=== PATIENT | female | born 1950 | race Caucasian/White ===

== ENCOUNTER 2023-05-31 15:51 | Emergency (ER) | payer MEDICARE, OTHER, SELFPAY ==
--- NOTE | ~2023-05-31 | XR_ITS ---
EXAM: XR shoulder RT min 2V DATE: 05/31/2023 16:15 HISTORY: fall . COMPARISON: None available. FINDINGS: Decreased mineralization. No fracture or dislocation. No lytic or blastic lesion. Mild AC joint and glenohumeral joint degenerative change. No erosion or periosteal change. Hilar and mediasti nal rambo calcification. Senescent lung changes. IMPRESSION: No acute osseous finding in the right shoulder. Reviewed, dictated and finalized at location K.
--- NOTE | 2023-05-31 16:04 | ED.EXTPRO ---
HPI - Extremity Problem General Chief complaint: Extremity Problem,Nontraumatic Stated complaint: R Shoulder Pain Time Seen by Provider: 05/31/23 16:31 Source: patient and RN notes reviewed Mode of arrival: ambulatory Limitations: no limitations History of Present Illness HPI Narrative: 72 year old female presents with concern for right shoulder pain after a fall today. She tripped on her 's trailer hitch. She reports jjoint pain, denies decreased strength, sensation, range of motion. Reports she has been having chronic pain lately and has an appointment with her primary care provider in 1 week. She denies bruising, warmth, swelling MD Complaint: extremity pain Related Data Home Medications Medication Instructions Recorded Confirmed cholecalciferol (vitamin D3) 10 10 mcg PO DAILY 01/18/23 04/05/23 mcg (400 unit) capsule Allergies Allergy/AdvReac Type Severity Reaction Status Date / Time sulfamethoxazole AdvReac Severe Unknown Verified 05/31/23 16:19 [From ] trimethoprim [From ] AdvReac Severe Unknown Verified 05/31/23 16:19 Review of Systems Review of Systems: CONSTITUTIONAL: Denies malaise, chills, sweats, or fever. CARDIOVASCULAR: Denies chest pain, palpitations, or edema. RESPIRATORY: Denies cough or dyspnea. SKIN: Denies rash or itching, bruising, redness, swelling. MUSCULOSKELETAL: Reports right shoulder pain NEUROLOGIC: Denies numbness, weakness All systems reviewed & are unremarkable except as noted in HPI and below PMFSH Past Medical History Medical History Cataracts, bilateral Pernicious anemia Vitamin D deficiency Social History Social History Smoking status: Unknown if ever smoked Alcohol intake: current Drinks per week: 1 Substance use: never Substance use type: does not use Lack of Transportation: No Lack of Food: Never True Current Housing: I Have Housing Concerned About Future Housing: No Difficulty Paying Gas/Electric Bills: No Difficulty Paying for Meds: No Currently Unemployed: No Education: Trade/Vocational Certificate Difficulty w/ Childcare or Family Care: No Living arrangements: with family Occupation/Education: occupation Gender identity (if verbalized by the patient): Female Sexual Orientation (if Verbalized by the Patient): Straight or Heterosexual Comments At time of signature, agree with nursing past medical, surgical, social and family history. There is no relevant family history pertinent to the presenting complaint Exam Narrative: GENERAL: Well-appearing, well-nourished, and in no acute distress. HEAD: Normocephalic, atraumatic. EYES: PERRLA, conjunctivae clear NECK: Supple. CHEST: Speaks in full sentences. No respiratory distress. HEART: Regular rate and rhythm. Normal and equal peripheral pulses. EXTREMITIES: Right shoulder, upper extremity have grossly normal strength and sensation, normal range of motion. No edema or ecchymosis. Normal sensation with sensitivity to light touch and pain. Lateral shoulder joint tenderness. No open wounds, no skin tenting, no devitalized tissue or atrophy, no trophic changes, no obvious deformity, alignment normal, nearby joints and structures intact. Distal pulses palpable and equal bilaterally, skin warm, dry, pink. Capillary refill less than 3 seconds. SKIN: Warm, dry, no rash. NEURO: Alert and oriented x3. PSYCH: Normal mood and affect Course Course Emergency Course: Patient is aware of diagnosis, understands and agrees to treatment plan. Anticipatory guidance given. Patient agrees to follow-up as directed and is aware of reasons to seek care at the emergency department. Portions of this record may have been created with voice recognition software Level of Care: Express Care Visit Vital Signs Vital signs: Reviewed. MDM - Extremity (Nontr
[2023-05-31 16:06] VITALS: BP 165/85; PULSE 70; RESP 18; TEMP 36.6; O2SAT 100
== END 2023-05-31 16:44 | disposition home or self-care (01) ==
PROVIDERS: Emergency Provider Nurse Practitioner; PCP Nurse Practitioner Family
DX: M25.511 Pain in right shoulder (principal); H26.9 Unspecified cataract; E55.9 Vitamin D deficiency, unspecified
CPT/HCPCS: 73030; 99213; A4565; G0463

== ENCOUNTER 2023-09-07 09:51 | Emergency (ER) | payer MEDICARE, OTHER, SELFPAY ==
--- NOTE | 2023-09-07 10:02 | ED.URI ---
HPI - URI/Sore Throat General Chief Complaint: Upper Respiratory Infection Stated Complaint: body pain/ unspecified Time Seen by Provider: 09/07/23 10:02 Source: patient Mode of arrival: ambulatory Limitations: no limitations Related Data Home Medications Medication Instructions Recorded Confirmed cholecalciferol (vitamin D3) 10 10 mcg PO DAILY 01/18/23 08/16/23 mcg (400 unit) capsule calcium carbonate (Alcalak) 168 mg PO TID 08/16/23 08/16/23 mecobalamin (vitamin B12) 500 mcg mcg PO 08/16/23 08/16/23 chewable tablet Allergies Allergy/AdvReac Type Severity Reaction Status Date / Time sulfamethoxazole AdvReac Severe Unknown Verified 08/16/23 09:03 [From ] trimethoprim [From ] AdvReac Severe Unknown Verified 08/16/23 09:03 Review of Systems Review of Systems: Pertinent positives per HPI. Patient denies any fever, chills, rash, headache, visual changes, dizziness, cough, shortness of breath, chest pain, palpitations, nausea, vomiting, diarrhea, constipation, abdominal pain, or any urinary issues. [facility] Past Medical History Medical History ) Cataracts, bilateral Pernicious anemia Vitamin D deficiency Social History Social History ) Smoking status: Unknown if ever smoked Alcohol intake: current Drinks per week: 1 Substance use: never Substance use type: does not use Lack of Transportation: No Lack of Food: Never True Current Housing: I Have Housing Concerned About Future Housing: No Difficulty Paying Gas/Electric Bills: No Difficulty Paying for Meds: No Currently Unemployed: No Education: Trade/Vocational Certificate Difficulty w/ Childcare or Family Care: No Living arrangements: with family Occupation/Education: occupation Gender identity (if verbalized by the patient): Female Sexual Orientation (if Verbalized by the Patient): Straight or Heterosexual Comments At the time of my signature, I reviewed and agree with the nursing past medical, surgical, social, and family history. There is no relevant family history pertinent to the patient complaint. Exam Narrative: General: Well-developed, well nourished, in no apparent distress Head: Normocephalic, atraumatic Eyes: Pupils equally round and reactive to light bilaterally, EOM intact, sclera and conjunctive clear, no discharge, lids normal Ears: TMs intact and clear, ear canals clear, no drainage, grossly hearing normal. Nose: Nares patent, no discharge, no inflammation, no sinus tenderness. Mouth: Oral pharynx without lesions or masses, good dentition, MMM. Neck: Supple, trachea midline, no enlargement of anterior or posterior cervical nodes, no thyroid masses or goiter palpable. Cardio: Regular rate and rhythm, s1 and s2 normal, no murmur appreciated. Resp: Clear to auscultation bilaterally, no rhonchi, rales, wheezing or rubs Course Course Emergency Course: Portions of this record may have been created with voice recognition software. Level of Care: Express Care Visit Vital Signs Vital signs: Vital signs reviewed MDM - URI/Sore Throat Differential Diagnosis Differential diagnosis: Likely sinusitis, viral infection, influenza and pharyngitis Discharge Plan Discharge Prescriptions: No Action ibuprofen 600 mg tablet 600 mg PO QID PRN (Reason: pain) Qty: 30 0RF cholecalciferol (vitamin D3) 10 mcg (400 unit) capsule 10 mcg PO DAILY mecobalamin (vitamin B12) 500 mcg tablet,chewable PO Alcalak 168 mg calcium (420 mg) tablet,chewable 168 mg PO TID losartan 50 mg tablet 50 mg PO DAILY Qty: 90 0RF duloxetine [Cymbalta] 30 mg capsule,delayed release(DR/EC) 30 mg PO DAILY Qty: 90 0RF omeprazole 20 mg capsule,delayed release(DR/EC) 20 mg PO DAILY Qty: 90 0RF Follow-up/Referrals: Mary Vigil, [employer] [Primary Care Provider]
--- NOTE | 2023-09-07 10:04 | ED.GENADULT ---
HPI - General Adult General Chief complaint: Upper Respiratory Infection Stated complaint: body pain/ unspecified Time Seen by Provider: 09/07/23 10:02 Source: patient Mode of arrival: ambulatory Limitations: no limitations History of Present Illness HPI narrative: Sherri is a 72-year-old female patient presenting to the clinic today with complaints of runny nose, congestion, fatigue, and body aches x2 days. She reports no known fever or chills. Denies any urinary symptoms. Denies shortness of breath or chest pain. Has taken for COVID test at home and all were negative. Last test was this morning. No known sick contacts. Patient requesting her urine to be checked as she has increased lower back pain. She has not taken any medications to help alleviate her symptoms at home. Related Data Home Medications Medication Instructions Recorded Confirmed cholecalciferol (vitamin D3) 10 10 mcg PO DAILY 01/18/23 09/07/23 mcg (400 unit) capsule calcium carbonate (Alcalak) 168 mg PO TID 08/16/23 09/07/23 mecobalamin (vitamin B12) 500 mcg 500 mcg PO DAILY 08/16/23 09/07/23 chewable tablet amlodipine 5 mg tablet 5 mg PO DAILY 09/07/23 09/07/23 omeprazole 20 mg capsule,delayed 20 mg PO DAILY 09/07/23 09/07/23 release Allergies Allergy/AdvReac Type Severity Reaction Status Date / Time No Known Allergies Allergy Verified 09/07/23 10:23 Review of Systems Review of Systems: Pertinent positives per HPI. Patient denies any fever, chills, rash, headache, visual changes, dizziness, cough, sore throat, shortness of breath, chest pain, palpitations, nausea, vomiting, diarrhea, constipation, abdominal pain, or any urinary issues. [facility], [facility] Past Medical History Medical History Cataracts, bilateral Pernicious anemia Vitamin D deficiency Social History Social History Smoking status: Unknown if ever smoked Alcohol intake: current Drinks per week: 1 Substance use: never Substance use type: does not use Lack of Transportation: No Lack of Food: Never True Current Housing: I Have Housing Concerned About Future Housing: No Difficulty Paying Gas/Electric Bills: No Difficulty Paying for Meds: No Currently Unemployed: No Education: Trade/Vocational Certificate Difficulty w/ Childcare or Family Care: No Living arrangements: with family Occupation/Education: occupation Gender identity (if verbalized by the patient): Female Sexual Orientation (if Verbalized by the Patient): Straight or Heterosexual Comments At the time of my signature, I reviewed and agree with the nursing past medical, surgical, social, and family history. There is no relevant family history pertinent to the patient complaint. Exam Narrative: General: Well-developed, well nourished, in no apparent distress Head: Normocephalic, atraumatic Eyes: Pupils equally round and reactive to light bilaterally, EOM intact, sclera and conjunctive clear, no discharge, lids normal Ears: TMs intact and clear, ear canals clear, no drainage, grossly hearing normal. Nose: Nares patent, clear nasal discharge, no inflammation, no sinus tenderness. Mouth: Oropharynx without lesions or masses, good dentition, MMM. Neck: Supple, trachea midline, no enlargement of anterior or posterior cervical nodes, no thyroid masses or goiter palpable. Cardio: Regular rate and rhythm, s1 and s2 normal, no murmur appreciated. Resp: Clear to auscultation bilaterally anteriorly and posteriorly, no rhonchi, rales, wheezing or rubs Course Course Emergency Course: Portions of this record may have been created with voice recognition software. Level of Care: Express Care Visit Vital Signs Vital signs: Vital signs reviewed Medical Decision Making MDM Narrative Medical decision making narrative: At the time of visit patient is resting comf
[2023-09-07 10:09] VITALS: BP 122/77; PULSE 95; RESP 16; TEMP 36.1; O2SAT 100
[2023-09-07 10:19] LABS: EDUAAPPEAR Cloudy; EDUABILI 1+; EDUABLOOD Negative; EDUACOLOR1 Dark; EDUAGLUCOSE Negative; EDUAKETONE Negative; EDUALEUKO Trace; EDUANITRATE Negative; EDUAPH 5.5; EDUAPROTEIN 1+; EDUAUROBILI 0.2
[2023-09-07 10:51] LABS: EDINFLUASCREEN Negative; EDINFLUBSCREEN Negative
== END 2023-09-07 10:47 | disposition home or self-care (01) ==
PROVIDERS: Emergency Provider Nurse Practitioner Family; PCP Nurse Practitioner Family
DX: J06.9 Acute upper respiratory infection, unspecified (principal); B34.9 Viral infection, unspecified; R53.83 Other fatigue; H26.9 Unspecified cataract; E55.9 Vitamin D deficiency, unspecified
CPT/HCPCS: 81003; 87086; 87088; 87804; 99213; G0463

== ENCOUNTER 2023-09-08 09:53 | Emergency (ER) | payer MEDICARE, OTHER, SELFPAY ==
[2023-09-08] VITALS (13 sets, daily range): BP systolic 119–156; BP diastolic 70–110; PULSE 86–106; RESP 16–25; TEMP 36.3; O2SAT 93–100
--- NOTE | ~2023-09-08 | XR_ITS ---
Clinical Indication: Shortness of breath PA and lateral views of the chest: Comparison: 06/07/2023 Findings: The lungs are clear, without evidence of focal consolidation or pleural effusion. Cardiome diastinal silhouette is within normal limits. Stable kyphosis, with mild chronic compression deformit y of probably T8.. Impression: Clear lungs. Reviewed, dictated and finalized at location . Impression: Clear lungs.
--- NOTE | 2023-09-08 09:59 | ECG_ITS ---
Test Date: 2023-09-08 10:05:44 Measurements Intervals [place] Rate: 107 P: 53 TN: 136 QRS: -18 QRSD: 98 T: 37 QT: 337 QTc: 450 Interpretive Statements SINUS TACHYCARDIA LOW QRS VOLTAGE IN PRECORDIAL LEADS RIGHT BUNDLE BRANCH BLOCK BASELINE ARTIFACT- I, II, III, AVR, AVL, AVF, V6 ABNORMAL ECG No previous ECG available for comparison Electronically Signed On 09-08-2023 10:09:07 CDT by Efren Vaughn D.O.
[2023-09-08 10:47] LABS: Basophils Absolute Auto 0.1 K/mm3 (0.0-0.1); Basophils Percent Auto 0.8 % (0.2-1.2); Eosinophils Percent Auto 0.7 % (0-4.4); Hematocrit 55.7 % (37.0-47.0); Hemoglobin 18.1 g/dL (12.0-15.0); Immature Granulocyte Absolute 0.17 K/mm3 (0.00-0.031); Immature Granulocyte Percent A 2.8 % (0-0.5); Lymphocytes Absolute Auto 1.12 K/mm3 (0.9-3.2); Lymphocytes Percent Auto 18.7 % (18.3-44.2); Mean Corpuscular HGB Conc 32.5 g/dl (32-36); Mean Corpuscular Hemoglobin 30.2 pg (26-34); Mean Platelet Volume 11.6 fl (7.4-10.4); Monocytes Absolute Auto 0.8 K/mm3 (0.1-0.6); Monocytes Percent Auto 13.5 % (2.6-8.5); Neutrophils Absolute Auto 3.8 K/mm3 (1.3-6.7); Neutrophils Percent Auto 63.5 % (45.5-73.1); Platelet Count Result 175 k/mm3 (150-375); Red Blood Count 5.99 M/mm3 (4.2-5.4); Red Cell Distribution Width 14.6 % (11.5-14.5)
[2023-09-08 10:58] LABS: Lipase 109 U/L (23-300)
[2023-09-08 10:59] LABS: Alanine Aminotransferase 23 U/L (6-35); Alkaline Phosphatase 96 U/L (38-126); Anion Gap 15 mmol/L (4-12); Aspartate Amino Transferase 27 U/L (14-36); Bilirubin,Total 0.6 mg/dL (0.2-1.3); Blood Urea Nitrogen 21 mg/dL (7-17); Calcium 8.7 mg/dL (8.4-10.2); Carbon Dioxide 22 mmol/L (22-30); Chloride 102 mmol/L (98-107); Estimated CRCL calculation 58 ml/min; Estimated Glomerular Filt Rate > 60; Glucose 121 mg/dL (65-110); Potassium 3.5 mmol/L (3.4-5.0); Sodium 139 mmol/L (137-145)
[2023-09-08 11:23] LABS: Influenza A QL RT-PCR Negative (Negative); Influenza B QL RT-PCR Negative (Negative); RSV RNA, RT-PCR Negative (Negative); SARS-CoV-2 RNA PCR Negative (Negative)
[2023-09-08 11:29] LABS: Add Urine Microscopic? YES; Appearance Urine Cloudy (Clear); Bacteria Urine None Seen /hpf; Bilirubin Urine Negative (Negative); Blood Urine Negative (Negative); Color Urine Dark Yellow (Yellow); Glucose Urine UA Negative (Negative); Ketones Urine Negative (Negative); Leukocyte Esterase Ur Negative LEU/UL (Negative); Need Manual Microscopic Reviewed; Nitrate Urine Negative (Negative); Protein Urine 1+ mg/dL (Negative); RBC Urine 0-2 /hpf (0-2); Specific Grav Ur 1.037 (1.001-1.035); Squamous Epithelial Cell Urine Few /hpf (Few); WBC Urine 0-5 /hpf (0-3)
--- NOTE | 2023-09-08 13:15 | ED.SOB ---
HPI - SOB/Dyspnea General Chief Complaint: Shortness of Breath/Dyspnea Stated Complaint: sob Time Seen by Provider: 09/08/23 11:51 Source: patient Mode of arrival: ambulatory Limitations: no limitations History of Present Illness HPI Narrative: Patient states she has been having multiple complaints since Wednesday, primarily myalgias, diaphoresis, feeling shaky, and having a dry mouth. She was recently started on duloxetine 30 mg approximately 1 week ago. She was seen at urgent care and told she had an upper respiratory infection but tested negative for flu. Cough had been listed in triage but she states she has not had a cough nor had a sore throat. She denies any chest pain. Patient has a history of neuropathy for which he takes B12. She also had positive KIKI for which she is seeing a environmental research project manager. Patient's primary care physician is in [place]. She thinks her symptoms may be related to the duloxetine but she discuss with her son was a pharmacist who recommended that she not discontinue this medication immediately. She denies any dysuria, hematuria, urgency or frequency. She is concerned about her heart and she notes a friend/family member who had similar symptoms with poor diagnosis/outcome. Related Data Home Medications Medication Instructions Recorded Confirmed cholecalciferol (vitamin D3) 10 10 mcg PO DAILY 01/18/23 09/07/23 mcg (400 unit) capsule calcium carbonate (Alcalak) 168 mg PO TID 08/16/23 09/07/23 mecobalamin (vitamin B12) 500 mcg 500 mcg PO DAILY 08/16/23 09/07/23 chewable tablet amlodipine 5 mg tablet 5 mg PO DAILY 09/07/23 09/07/23 omeprazole 20 mg capsule,delayed 20 mg PO DAILY 09/07/23 09/07/23 release Allergies Allergy/AdvReac Type Severity Reaction Status Date / Time No Known Allergies Allergy Verified 09/08/23 10:28 [facility] Past Medical History Medical History KIKI positive Cataracts, bilateral Neuropathy Pernicious anemia Vitamin D deficiency Social History Social History Smoking status: Unknown if ever smoked Alcohol intake: current Drinks per week: 1 Substance use: never Substance use type: does not use Lack of Transportation: No Lack of Food: Never True Current Housing: I Have Housing Concerned About Future Housing: No Difficulty Paying Gas/Electric Bills: No Difficulty Paying for Meds: No Currently Unemployed: No Education: Trade/Vocational Certificate Difficulty w/ Childcare or Family Care: No Living arrangements: with family Occupation/Education: occupation Gender identity (if verbalized by the patient): Female Sexual Orientation (if Verbalized by the Patient): Straight or Heterosexual Exam Narrative: GENERAL: Well-appearing, well-nourished, and in no acute distress. HEAD: Normocephalic, atraumatic. EYES: Non injected, non icteric ENT: Nares clear, no rhinorrhea or epistaxis. NECK: Supple. CHEST: Speaking in full sentences. No respiratory distress. HEART: Regular rate and rhythm. . ABDOMEN: Soft, nondistended. EXTREMITIES: Normal range of motion. No edema. SKIN: Warm, dry, no rash. NEURO: No focal deficits. Alert and oriented x3. PSYCH: Congruent mood and affect. Patient is somewhat anxious though engaged in her care. She is asking questions her workup and what it shows, seeking reassurance (i.e. is my heart ok? Are my electrolytes ok? ) Course Vital Signs Vital signs: Vital Signs Temperature 97.4 F L 09/08/23 09:55 Pulse Rate 106 H 09/08/23 09:55 Respiratory Rate 16 09/08/23 09:55 Blood Pressure 156/110 H 09/08/23 09:55 Pulse Oximetry 100 09/08/23 09:55 Oxygen Delivery Room Air 09/08/23 09:55 Temperature 97.4 F L 09/08/23 09:55 Pulse Rate 86 09/08/23 14:36 Respiratory Rate 20 09/08/23 14:36 Blood Pressure 128/74 09/08/23 14:36 Pulse Oximetry 94 09/08/23 14:36
[2023-09-08] MEDS: SODIUM CHLORIDE 0.9% IV 1,000 ML 999 ML IV CONT (13:35)
--- NOTE | 2023-09-08 13:42 | PC.NURSE ---
This RN called laboratory to request add ons be ran to blood previously sent down (CPK and Mag).
[2023-09-08 13:53] LABS: Troponin I 0.017 ng/mL (0.000-0.034)
[2023-09-08 14:00] LABS: Creatine Kinase 115 U/L (30-135)
[2023-09-08] MEDS: ACETAMINOPHEN 500 MG TABLET 1000 MG PO (14:35)
[2023-09-08] MEDS: KETOROLAC 15 MG/ML VIAL (*BKC) IV PUSH (14:35)
== END 2023-09-08 14:55 | disposition home or self-care (01) ==
PROVIDERS: Emergency Provider Student in an Organized Health Care Education/Training Program; PCP Nurse Practitioner Family
DX: M79.10 Myalgia, unspecified site (principal); I45.10 Unspecified right bundle-branch block; R71.8 Other abnormality of red blood cells; Z20.822 Contact with and (suspected) exposure to COVID-19; E55.9 Vitamin D deficiency, unspecified; G62.9 Polyneuropathy, unspecified; H26.9 Unspecified cataract; Z86.2 Personal history of diseases of the blood and blood-forming organs and certain disorders involving the immune mechanism; R00.0 Tachycardia, unspecified; Z79.899 Other long term (current) drug therapy
CPT/HCPCS: 36415; 71046; 80053; 81001; 82550; 83690; 83735; 84484; 85025; 87637; 93005; 96361; 96374; 99284; A9270; J1885; J7030

== ENCOUNTER 2023-09-09 18:04 | Observation (INO) | payer MEDICARE, OTHER, SELFPAY ==
--- NOTE | ~2023-09-09 | MR_ITS ---
EXAMINATION: MR abdomen wo/w con DATE: 09/10/2023 10:07 INDICATION: Abnormal liver imaging. TECHNIQUE: Magnetic resonance imaging (MRI) of the abdomen was performed without and with 17 mL Multi Jemal intravenous contrast. COMPARISON: CT abdomen and pelvis 09/09/2023 FINDINGS: There are trace pleural effusions. There are cysts in the liver measuring up to 6 mm. There are 10 mm and 20 mm liver masses with delayed hyperenhancement. There are gallstones in the gallbladder, which is normal in size. The spleen, pancreas, adrenal glands are normal. There are cysts in the kidneys m easuring up to 3.8 cm on the left. There are no dilated loops of bowel. IMPRESSION: 1. Two hyperenhancing liver masses with the larger measuring 20 mm. In the absence of known malignanc y or chronic liver disease, these findings are likely hemangiomas or focal nodular hyperplasia. Reviewed, dictated and finalized at location A. IMPRESSION: 1. Two hyperenhancing liver masses with the larger measuring 20 mm. In the abse nce of known malignancy or chronic liver disease, these findings are likely hem angiomas or focal nodular hyperplasia.
--- NOTE | ~2023-09-09 | CT_ITS ---
EXAMINATION: CT abdomen pelvis w con DATE: 09/09/2023 20:53 INDICATION: Right lower quadrant abdominal pain TECHNIQUE: Computed tomography (CT) of the abdomen and pelvis was performed with 100 mL Omnipaque-350 intravenous contrast. Automated exposure control and iterative reconstruction technique were employe d. The dose-length product was 768.70 mGy-cm. COMPARISON: None FINDINGS: There are few small calcified pulmonary nodules in the right lower lung along with calcified right hi lar and mediastinal lymph nodes and multiple hepatic and splenic calcifications, all consistent with old granulomatous disease. Heart size is normal. Atherosclerotic coronary artery calcifications. Smal l pericardial effusion. Small sliding-type hiatal hernia. There are several low-attenuation hepatic l esions the largest measuring 2.1 cm the posterior inferior right hepatic lobe. Pancreas and bilateral adrenal glands are normal. There are few low-attenuation right renal cyst. Mild left hydronephrosis with transition point at the ureteropelvic junction without evident obstructing stone or mass. Sigmoi d predominant diverticulosis without adjacent from trace stranding to suggest diverticular colitis. S mall bowel and appendix are normal. Bladder is normal. The uterus is not identified and has likely be en surgically resected. No free intraperitoneal gas or fluid. No pathologically enlarged abdominal or pelvic lymphadenopathy. Mild to moderate thoracolumbar spondylosis with multiple chronic appearing c ompression fractures with 40% anterior vertebral body height loss at T8 and T9 and with 20% or less a nterior vertebral body height loss at T10-L2. Indeterminate peripherally sclerotic lesion underlying the superior endplate of T12. IMPRESSION: 1. Small pericardial effusion. 2. Likely left UPJ obstruction with mild left hydronephrosis without evident obstructing stone or mas s. 3. Multiple low-attenuation hepatic lesions measuring up to 2.1 cm statistically most likely to repre sent cysts or hemangiomas. Recommend further evaluation with pre and postcontrast MRI or CT. 4. Small sliding-type hiatal hernia. 5. Prominent sigmoid diverticulosis without evident diverticulitis. 6. Indeterminate sclerotic lesion at T12. Correlate with any prior outside imaging. Otherwise could c onsider bone scan for further evaluation particularly if there is history of prior malignancy. Reviewed, dictated and finalized at location A. IMPRESSION: 1. Small pericardial effusion. 2. Likely left UPJ obstruction with mild left hydronephrosis without evident ob structing stone or mass. 3. Multiple low-attenuation hepatic lesions measuring up to 2.1 cm statisticall y most likely to represent cysts or hemangiomas. Recommend further evaluation w ith pre and postcontrast MRI or CT. 4. Small sliding-type hiatal hernia. 5. Prominent sigmoid diverticulosis without evident diverticulitis. 6. Indeterminate sclerotic lesion at T12. Correlate with any prior outside imag ing. Otherwise could consider bone scan for further evaluation particularly if there is history of prior malignancy.
--- NOTE | ~2023-09-09 | XR_ITS ---
EXAMINATION: XR chest 1V portable DATE: 09/09/2023 19:29 INDICATION: Weakness, shortness of breath and chills TECHNIQUE: frontal view of the chest was obtained. COMPARISON: Chest radiograph dated 09/08/2023 and 06/07/2023 FINDINGS: Chronic linear opacities in the left lower lung zone consistent with atelectasis/scarring. No new air space opacities, pulmonary edema, pleural effusion or pneumothorax. Heart size is normal. Atheroscler otic and tortuous thoracic aorta. IMPRESSION: 1. Chronic discoid atelectasis/scarring at the left lower lung zone. Reviewed, dictated and finalized at location A.
[2023-09-09 18:16] VITALS: BP 128/99; PULSE 113; RESP 22; TEMP 36.3; O2SAT 98
--- NOTE | 2023-09-09 19:14 | ECG_ITS ---
Test Date: 2023-09-09 19:56:05 Measurements Intervals [place] Rate: 92 P: 50 DE: 134 QRS: -6 QRSD: 101 T: 9 QT: 407 QTc: 505 Interpretive Statements SINUS RHYTHM WITH OCCASIONAL VENTRICULAR PREMATURE COMPLEXES LOW QRS VOLTAGE IN PRECORDIAL LEADS [QRS DEFLECTION < 1.0 mV IN CHEST LEADS] POSSIBLE RIGHT VENTRICULAR CONDUCTION DELAY [RSR (QR) IN V1/V2] Compared to ECG 09/08/2023 10:05:44 ABNORMAL ECG Ventricular premature complex(es) now present Sinus tachycardia no longer present Right bundle-branch block no longer present( LIKELY A RATE-RELATED PHENOMENON) Electronically Signed On 09-10-2023 11:18:36 CDT by Brain Cates M.D.
[2023-09-09] MEDS: ONDANSETRON INJ 4 MG/2 ML VIAL IV PUSH (19:37)
[2023-09-09] MEDS: FAMOTIDINE 20 MG/2 ML VIAL IV PUSH (19:37)
[2023-09-09] MEDS: diazePAM INJ (*CRX) 10 MG/2 ML SYRINGE IV PUSH (19:37)
[2023-09-09] MEDS: SODIUM CHLORIDE 0.9% IV 1,000 ML 999 ML IV CONT (19:37)
[2023-09-09 19:48] LABS: Basophils Percent Auto 0.5 % (0.2-1.2); Eosinophils Percent Auto 0.5 % (0-4.4); Hematocrit 57.5 % (37.0-47.0); Immature Granulocyte Absolute 0.09 K/mm3 (0.00-0.031); Lymphocytes Absolute Auto 1.65 K/mm3 (0.9-3.2); Lymphocytes Percent Auto 18.9 % (18.3-44.2); Mean Corpuscular Hemoglobin 30.5 pg (26-34); Mean Corpuscular Volume 92.3 fl (80-100); Mean Platelet Volume 11.8 fl (7.4-10.4); Monocytes Percent Auto 11.5 % (2.6-8.5); Neutrophils Absolute Auto 5.9 K/mm3 (1.3-6.7); Neutrophils Percent Auto 67.6 % (45.5-73.1); Platelet Count Result 184 k/mm3 (150-375); Red Blood Count 6.23 M/mm3 (4.2-5.4); White Blood Count 8.7 K/mm3 (4.5-10.0)
[2023-09-09 19:50] VITALS: O2SAT 88; O2SAT 96
[2023-09-09 19:56] LABS: INR 0.9; Prothrombin Time 13.1 Seconds (11.1-14.7)
[2023-09-09 19:57] LABS: Add Urine Microscopic? YES; Appearance Urine Clear (Clear); Bacteria Urine None Seen /hpf; Bilirubin Urine Negative (Negative); Blood Urine Negative (Negative); Calcium Oxalate Crystals Urine Present /hpf; Color Urine Yellow (Yellow); Ethanol < 10 mg/dL (<10); Glucose Urine UA Negative (Negative); Ketones Urine Negative (Negative); Lactic Acid Reflex 3.7 mmol/L (0.7-2.0); Leukocyte Esterase Ur Negative LEU/UL (Negative); Need Manual Microscopic Reviewed; Nitrate Urine Negative (Negative); Partial Thromboplastin Time 26.3 Seconds (22.3-36.8); Protein Urine Trace mg/dL (Negative); Specific Grav Ur 1.024 (1.001-1.035); Squamous Epithelial Cell Urine Occasional /hpf (Few); WBC Urine 0-5 /hpf (0-3)
[2023-09-09 19:59] LABS: Alanine Aminotransferase 26 U/L (6-35); Albumin Level 3.4 g/dL (3.5-5.1); Alkaline Phosphatase 88 U/L (38-126); Anion Gap 10 mmol/L (4-12); Aspartate Amino Transferase 47 U/L (14-36); Bilirubin,Total 0.6 mg/dL (0.2-1.3); Blood Urea Nitrogen 20 mg/dL (7-17); Calcium 8.4 mg/dL (8.4-10.2); Carbon Dioxide 23 mmol/L (22-30); Chloride 104 mmol/L (98-107); Estimated CRCL calculation 59 ml/min; Estimated Glomerular Filt Rate > 60; Glucose 120 mg/dL (65-110); Lipase 91 U/L (23-300); Magnesium 1.8 mg/dL (1.6-2.3); Phosphorus 4.2 mg/dL (2.5-4.5); Potassium 3.7 mmol/L (3.4-5.0); Sodium 137 mmol/L (137-145)
[2023-09-09 20:04] LABS: Amphetamine Screen Urine Negative (Negative); Barbiturate Screen Urine Negative (Negative); Benzodiazepines Screen Urine Negative (Negative); Cannabinoid Screen Urine Negative (Negative); Cocaine Screen Urine Negative (Negative); Methadone Screen Urine Negative (Negative); Opiate Screen Urine Negative (Negative); Phencyclidine Screen Urine Negative (Negative)
[2023-09-09 20:05] VITALS: O2SAT 100
[2023-09-09 20:07] LABS: NT Pro B Type Natriuretic Pept 792 pg/mL (19.9-100)
[2023-09-09 20:42] LABS: Influenza A QL RT-PCR Negative (Negative); Influenza B QL RT-PCR Negative (Negative); RSV RNA, RT-PCR Negative (Negative); SARS-CoV-2 RNA PCR Negative (Negative)
--- NOTE | 2023-09-09 21:41 | ED.GENADULT ---
HPI - General Adult General Chief complaint: Weakness Stated complaint: SHORTNESS OF BREATH/DIARRHEA Time Seen by Provider: 09/09/23 18:53 History of Present Illness HPI narrative: This is a 72-year-old female presenting to ED with chief complaint of weakness. Patient has been having viral like symptoms since Wednesday. These include nausea, decreased appetite, diarrhea and body aches. Patient also has crampy abdominal pain in the lower quadrants. She is unsure if this is due to the diarrhea. Patient had concerns about serotonin syndrome as she has been started on duloxetine recently but has discontinued that for the last 5 days. Patient notes she has significant health-related anxiety. Patient was seen in our emergency department yesterday and diagnosed with dehydration and viral syndrome and discharged. She has now re-presented to the ED. Related Data Home Medications Medication Instructions Recorded Confirmed cholecalciferol (vitamin D3) 10 10 mcg PO DAILY 01/18/23 09/07/23 mcg (400 unit) capsule calcium carbonate (Alcalak) 168 mg PO TID 08/16/23 09/07/23 mecobalamin (vitamin B12) 500 mcg 500 mcg PO DAILY 08/16/23 09/07/23 chewable tablet amlodipine 5 mg tablet 5 mg PO DAILY 09/07/23 09/07/23 omeprazole 20 mg capsule,delayed 20 mg PO DAILY 09/07/23 09/07/23 release Allergies Allergy/AdvReac Type Severity Reaction Status Date / Time No Known Allergies Allergy Verified 09/09/23 18:20 [facility] Past Medical History Medical History KIKI positive Cataracts, bilateral Neuropathy Pernicious anemia Vitamin D deficiency Social History Social History Smoking status: Unknown if ever smoked Alcohol intake: current Drinks per week: 1 Substance use: never Substance use type: does not use Lack of Transportation: No Lack of Food: Never True Current Housing: I Have Housing Concerned About Future Housing: No Difficulty Paying Gas/Electric Bills: No Difficulty Paying for Meds: No Currently Unemployed: No Education: Trade/Vocational Certificate Difficulty w/ Childcare or Family Care: No Living arrangements: with family Occupation/Education: occupation Gender identity (if verbalized by the patient): Female Sexual Orientation (if Verbalized by the Patient): Straight or Heterosexual Exam Narrative: APPEARANCE: Anxious appearing Head: atraumatic. EYES: EOMI, NOSE: Atraumatic NECK: Trachea midline RESPIRATORY: No increased rate of breathing clear to auscultation CARDIOVASCULAR: Tachycardic no peripheral edema ABDOMINAL: Non-distended soft nontender MUSCULOSKELETAl: No obvious deformities NEURO: Alert. Moving 4/4 extremities SKIN:: Warm, dry. Normal color PSYCHIATRIC: Anxious Course Vital Signs Vital signs: Vital Signs Temperature 97.3 F L 09/09/23 18:16 Pulse Rate 113 H 09/09/23 18:16 Respiratory Rate 22 H 09/09/23 18:16 Blood Pressure 128/99 H 09/09/23 18:16 Pulse Oximetry 98 09/09/23 18:16 Temperature 97.3 F L 09/09/23 18:16 Pulse Rate 113 H 09/09/23 18:16 Respiratory Rate 22 H 09/09/23 18:16 Blood Pressure 128/99 H 09/09/23 18:16 Pulse Oximetry 100 09/09/23 20:05 Oxygen Delivery Room Air 09/09/23 20:05 Oxygen Flow Rate 2 09/09/23 19:50 Medical Decision Making MDM Narrative Medical decision making narrative: -Course: 72-year-old female bouncing back to ED day 5 viral-like illness. More extensive workup ordered today to re-evaluate. Patient's lactic elevated at 3.7. Her hemoglobin has continued to trend up to 19. No other significant laboratory abnormalities. CT with multiple incidental findings but nothing that appears to be causative of her presentation today. Patient given fluid resuscitation as well as anti-emetics and anxiolytics. Vital signs improved. Patient will be placed in observation for
[2023-09-09 22:03] LABS: Free T4 Free Thyroxine Reflex 1.61 ng/dL (0.78-2.19)
[2023-09-09 22:39] LABS: Reflex Lactic Acid Yes or No Add Lactic
[2023-09-09 22:54] VITALS: BP 124/74; PULSE 82; RESP 15; TEMP 36.4; O2SAT 100
[2023-09-09 23:25] VITALS: BP 134/80; PULSE 82; RESP 15; TEMP 36.4; O2SAT 100
--- NOTE | 2023-09-09 23:45 | ADMGEN ---
This patient, Sherri Ignacio, was admitted to Medical Room 348-01. Patient/family oriented to hospital policies and general routines including ID bracelet, bed and alarms, visiting hours, pain management, procedures, bathroom and other care routines, personal items, smoking policy, room service/diet, and visiting hours. Information on how to activate the Rapid Response Team has been discussed. Patient/Family are encouraged to report perceived risks to care and to ask questions if they do not understand what they are told or what they should do.
[2023-09-09] MEDS: LACTATED RINGERS 1,000 ML 125 ML IV CONT (23:52)
[2023-09-09 23:58] VITALS: BMI 31.4
[2023-09-10] VITALS: BP 135/65; PULSE 82; RESP 18; TEMP 36.6; O2SAT 98
--- NOTE | 2023-09-10 | ECHO_ITS ---
Patient Info Name: Sherri Ignacio Age: 72 years : 1950 Gender: Female Ht: 65 in Wt: 175 lbs BSA: 1.93 m2 HR: 82 bpm BP: 135 / 65 mmHg Heart Rhythm: Sinus Rhythm Technical Quality: Good Exam Date: 09/10/2023 10:24 AM Exam Location: Echo Lab Patient Status: Outpatient Admit Date: 09/09/2023 Staff Ordering Physician: Sherri Hallman DO Senior Patient Account Representative: Liban Hart RDCS Attending Provider: Betty Amanda APRN Referring Physician: Lexx WILKES; Exam Type: CA echo doppler color flow Study Info Indications - pericardial effusion Complete two-dimensional, color flow and Doppler transthoracic echocardiogram is performed. Summary 1. Complete two-dimensional, color flow and Doppler transthoracic echocardiogram is performed. 2. Normal left ventricular systolic function with grade 1 diastolic noncompliance. 3. No significant valvular dysfunction. 4. Small pericardial effusion which is anterior to the heart, effusion about 0.5 cm in thickness, very small. Left Ventricle Left ventricular chamber dimension is normal. Left ventricular systolic function is normal, estimated at 60-65%. The left ventricular diastolic function is grade I diastolic dysfunction. Right Ventricle Right ventricular chamber dimension is normal. Left Atria Left atrial chamber dimension is mildly enlarged. Right Atria Right atrial chamber dimension is normal. Aortic Valve The aortic valve is normal. Pulmonic Valve The pulmonic valve is not well visualized. Mitral Valve The mitral valve has normal leaflets. Tricuspid Valve The tricuspid valve leaflets are normal. Pericardium/Pleural The pericardium appears normal. There is small pericardial effusion. Aorta The aortic root size at the sinus of Valsalva is normal. Left Ventricular Outflow Tract Name Value Normal LVOT 2D LVOT Diameter 1.8 cm LVOT Doppler LVOT Peak Gradient 9 mmHg LVOT Mean Gradient 5 mmHg LVOT VTI 23 cm LVOT VTI/AV VTI Ratio 0.8 LVOT Stroke Volume 57 ml LVOT CO 4.6 l/min LVOT CI 2.4 l/min/m2 Pulmonic Valve Name Value Normal PV Doppler PV Peak Gradient 6 mmHg Mitral Valve Name Value Normal MV Doppler MV Decel [place] 251 cm/s2 MV PHT 73 ms MV Area (PHT) 3.0 cm2 4.0-5.0 MV Regurgitation Doppler MR Peak Gradient 56 mmHg
--- NOTE | 2023-09-10 03:12 | PM.IMHP ---
H&P: HPI History of Present Illness Date/Time: 09/10/23 03:12 Chief Complaint: Body aches, weakness, shortness of breath Narrative: 72-year-old female with past medical history of chronic hypoxic respiratory failure, peripheral neuropathy, pernicious anemia, essential hypertension and GERD who presented to the ER with body aches, generalized weakness and shortness of breath. The patient was having anxiety and neuropathy symptoms. She was started on Cymbalta 3 weeks ago for this. She has been having intermittent sweating, muscle aches, lightheadedness and profound weakness. She decided to stop taking her Cymbalta about 5 days ago when her symptoms became significant. She also reported significant nausea but no vomiting or dry heaves. She had also had some crampy lower abdominal pain that was intermittent. She went to urgent care on Wednesday she was tested for influenza and was negative. She has taken 5 home COVID test that were all negative. With diagnosed with a viral syndrome. She then came to the ER on Wednesday received 1 L of fluids and cardiac will out with 2- sets of troponins. Her hemoglobin at that time was elevated from her baseline of 14.7 from early August 18.1. When she came back to the ER on the her hemoglobin was elevated even further up to 19. She does report shortness of breath with movement and was having some tachycardia with activity. She denies any chest pain. She denied any orthopnea or lower extremity swelling. Her chest x-ray on the and on the were unremarkable. She had a CT of the abdomen pelvis with contrast on the that demonstrated small pericardial effusion, left you PJ obstruction with mild left hydronephrosis without evidence of obstructing stone, multiple low-attenuation hepatic lesions measuring 2.1 cm most likely representing cysts or hemangiomas, small sliding hiatal hernia diverticulosis without diverticulitis and indeterminate sclerotic lesion at T12. 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 She denies any point tenderness of her back or changes in her chronic back pain. She denies known history of acute liver process and is never had a CT of the abdomen previously. She denies any hematuria or changes in urinary frequency. She denies history of kidney disease, kidney stones. Patient reports that she does have a history of anxiety. She has been more anxious about her health since she had COVID in 2019. She does report a significant improvement in her symptoms since she is received IV fluids. She is still concerned because she is weak. She does have history of Raynaud's which she thinks is been getting worse. She had an KIKI come back positive and is being evaluated by Rheumatology as outpatient next month. She feels that the more she goes to doctors some or they find problems in and this is causing more anxiety. She thinks that the anxiety is what is causing her shortness of breath. She does have somewhat frequent GERD symptoms for which she is on omeprazole at home. Review of Systems Review of Systems: 12 systems were reviewed with pertinent positives and negatives per HPI. Except as documented in the HPI, all other systems were reviewed and are negative. [facility] Past Medical History Medical History (Updated 09/10/23 @ 07:15 by Sherri Hallman DO) KIKI positive Anxiety Cataracts, bilateral Essential hypertension GERD (gastroesophageal reflux disease) Peripheral artery disease Peripheral neuropathy Pernicious anemia Raynauds phenomenon Venous insufficiency of both lower extremities Vitamin D deficiency Surgical History Surgical History (Updated 09/10/23 @ 07:13 by Sherri Hallman DO) History of ligation of vein Bilateral lower extremities Family History Family History Father COPD (chronic obstructive pulmonary disease) Mother
[2023-09-10 05:16] LABS: Hemoglobin 16.3 g/dL (12.0-15.0); Mean Corpuscular HGB Conc 31.3 g/dl (32-36); Mean Corpuscular Hemoglobin 29.5 pg (26-34); Mean Platelet Volume 11.8 fl (7.4-10.4); Platelet Count Result 160 k/mm3 (150-375); Red Blood Count 5.53 M/mm3 (4.2-5.4); Red Cell Distribution Width 14.6 % (11.5-14.5)
[2023-09-10 05:34] LABS: Anion Gap 9 mmol/L (4-12); Blood Urea Nitrogen 18 mg/dL (7-17); Calcium 7.7 mg/dL (8.4-10.2); Carbon Dioxide 21 mmol/L (22-30); Chloride 105 mmol/L (98-107); Estimated CRCL calculation 70 ml/min; Estimated Glomerular Filt Rate > 60; Glucose 111 mg/dL (65-110); Potassium 3.9 mmol/L (3.4-5.0); Sodium 135 mmol/L (137-145)
[2023-09-10 06:00] VITALS: BP 139/86; PULSE 86; RESP 20; TEMP 36.2; O2SAT 99
[2023-09-10] MEDS: LACTATED RINGERS 1,000 ML 125 ML IV CONT (08:44)
[2023-09-10] MEDS: LOSARTAN POTASSIUM 50 MG TABLET PO (08:45)
[2023-09-10] MEDS: PANTOPRAZOLE 40 MG TABLET PO (08:45)
[2023-09-10] MEDS: CALCIUM CARBONATE (TUMS) 500 MG (200 MG ELEMENTAL) PO (08:45)
[2023-09-10] MEDS: CYANOCOBALAMIN 500 MCG TABLET PO (08:45)
[2023-09-10] MEDS: ENOXAPARIN 40 MG/0.4 ML SYRINGE SUB-Q (08:45)
[2023-09-10] MEDS: LORazepam INJ (*CRX) 2 MG/ML VIAL 1 MG IV PUSH (08:59)
[2023-09-10 13:28] VITALS: BP 104/73; PULSE 85; RESP 18; TEMP 36.6; O2SAT 99
--- NOTE | 2023-09-10 13:51 | PM.DS ---
DS: Admitting Diagnosis Discharge Date 09/10/2023 Admitting Diagnosis Generalized weakness/dehydration DS: Discharge Diagnosis Discharge Diagnosis (1) Acute dehydration: Code(s): E86.0 - Dehydration Status: Acute (2) Anxiety: Code(s): F41.9 - Anxiety disorder, unspecified Status: Acute (3) Diarrhea: Qualifiers: Diarrhea type: unspecified type Qualified Code(s): R19.7 - Diarrhea, unspecified Code(s): R19.7 - Diarrhea, unspecified Status: Acute (4) Polycythemia due to fall in plasma volume: Code(s): D75.1 - Secondary polycythemia Status: Acute (5) Pericardial effusion: Code(s): I31.39 - Other pericardial effusion (noninflammatory) Status: Acute (6) Abnormal liver diagnostic imaging: Code(s): R93.2 - Abnormal findings on diagnostic imaging of liver and biliary tract Status: Acute Plan The patient has marked polycythemia due to hemoconcentration. Hemoglobin has improved after IV fluid hydration. Will continue IV fluid hydration and monitor I&O's. The patient's mucous membranes still appear tacky and somewhat dry on exam. Patient does have abnormal liver imaging with cystic disease or hemangiomas being more likely than malignancy but patient does have an area of lucency on the thoracic spine. Will obtain MRI of the abdomen with and without contrast for further delineation although this could be done as outpatient if the patient's feeling significantly improved. Patient also does have a small pericardial effusion. Patient is being evaluated for positive KIKI and possible autoimmune process as outpatient. Will check echocardiogram to further evaluate cardiac structure and function given presence of pericardial effusion and mildly elevated BNP. She already has outpatient follow-up next month. The patient is having significant heartburn symptoms the been worse than baseline. Will place patient on Protonix. Patient does have some anxiety. It is unclear if some of her symptoms may be due to anxiety versus medication side effect from Cymbalta. Patient has already been holding her Cymbalta for the last 5 days or so. Will continue to hold this. The patient has not had any further loose stools since admission. She has not had any recent antibiotic therapy. Will monitor and consider further testing for possible infectious source of diarrhea if recurs. The patient also has hydronephrosis without evidence of obstructing stone. Hopefully MR imaging will delineate if there is acute obstructive process although patient does not have any evidence of acute kidney injury to this is more likely to be a chronic finding. And monitor urine output closely. Will repeat CBC and electrolyte panel in a.m.. Patient does have history of essential hypertension but blood pressures have been within goal range. Will continue home losartan. Patient has been admitted as observation status. DS: Summary Hospital Course Reason for hospitalization: Generalized weakness/dehydration Hospital Course: 72-year-old female with past medical history of chronic hypoxic respiratory failure, peripheral neuropathy, pernicious anemia, essential hypertension and GERD who presented to the ER with body aches, generalized weakness and shortness of breath. The patient was having anxiety and neuropathy symptoms. She was started on Cymbalta 3 weeks ago for this. She has been having intermittent sweating, muscle aches, lightheadedness and profound weakness. She decided to stop taking her Cymbalta about 5 days ago when her symptoms became significant. She also reported significant nausea but no vomiting or dry heaves. She had also had some crampy lower abdominal pain that was intermittent. She went to urgent care on Wednesday she was tested for influenza and was negative. She has taken 5 home COVID test that were all negative. With diagnosed with a viral syndrome. She then came to the ER on
== END 2023-09-10 16:15 | disposition home or self-care (01) ==
LOC: ANHED 22:22 → ANH3MED 23:27
PROVIDERS: Admitting Provider Internal Medicine; Emergency Provider Emergency Medicine; PCP Nurse Practitioner Family; Visit Provider Nurse Practitioner Family
DX: E86.0 Dehydration (principal); I31.39 Other pericardial effusion (noninflammatory); D75.1 Secondary polycythemia; R93.2 Abnormal findings on diagnostic imaging of liver and biliary tract; R53.1 Weakness; R19.7 Diarrhea, unspecified; J96.11 Chronic respiratory failure with hypoxia; G62.9 Polyneuropathy, unspecified; D51.0 Vitamin B12 deficiency anemia due to intrinsic factor deficiency; I10 Essential (primary) hypertension; K21.9 Gastro-esophageal reflux disease without esophagitis; E55.9 Vitamin D deficiency, unspecified; F41.9 Anxiety disorder, unspecified; Z20.822 Contact with and (suspected) exposure to COVID-19; Z79.899 Other long term (current) drug therapy
CPT/HCPCS: 36415; 71045; 74177; 74183; 80048; 80053; 80307; 81001; 83605; 83690; 83735; 83880; 84100; 84439; 84443; 84480; 85025; 85027; 85610; 85730; 87637; 93005; 93306; 96361; 96372; 96374; 96375; 99285; A9270; A9577; G0378; J1650; J2060; J2405; J3360; J7030; J7120; Q9967

== ENCOUNTER 2023-09-11 00:52 | Inpatient (IN) | payer MEDICARE, OTHER, SELFPAY ==
[2023-09-11] VITALS (19 sets, daily range): BP systolic 135–156; BP diastolic 66–98; PULSE 70–102; RESP 15–28; TEMP 35.8–37.3; O2SAT 96–100; BMI 35.6
--- NOTE | ~2023-09-11 | CT_ITS ---
EXAMINATION: CTA abd aorta runoff DATE: 09/12/2023 13:53 INDICATION: Severe sharp back pain TECHNIQUE: Computed tomography (CT) of the abdominal aorta, iliac, femoral was performed with 100 CC Omnipaque 350 intravenous contrast. Automated exposure control and iterative reconstruction technique were employed. Exam dose: 1755.56 mGy-cm total exam DLP. COMPARISON: 09/09/2023 CT abdomen pelvis FINDINGS: There is atherosclerotic calcification but no evidence of significant stenosis or dissectio n or aneurysm of the abdominal aorta. Normal caliber and atherosclerotic calcification of the common iliac arteries without occlusion. Prominent internal iliac artery calcifications are noted bilaterall y. External iliac arteries are patent. There is calcified plaque of the common femoral and femoral an d popliteal arteries but no occlusion or significant collateral circulation. There is three-vessel arterial runoff into both distal lower legs. Since 09/09/2023: Mildly increased pericardial effusion. New moderately large bilateral pleural effusions with bilateral lower lobe compressive atelectasis. There are multiple stones in the dependent aspect of the gallbladder. No gallbladder wall thickening or pericholecystic fluid collection. Multiple indeterminate 2 cm or smaller hypoattenuating lesions of the liver. No bile duct or pancreatic duct dilatation. No pancreatic mass lesion or calcification. Normal morphology of the adrenal glands. Numerous hepatic and splenic calcified granulomas in addition to prominent calcified subcarinal and r ight hilar lymph nodes, all consistent with old granulomatous disease. Mild left hydronephrosis and prominence of the left renal pelvis with normal caliber ureter, suggesti ng left ureteropelvic disproportion. There are couple of right renal cyst measuring 8 mm or smaller. No urinary tract calculus is noted. Status post hysterectomy. The urinary bladder is unremarkable. Small sliding hiatal hernia. Normal appendix. There are in numerable diverticula of the sigmoid and descending colon; no CT evidence of diverticuli tis. No bowel obstruction or intraperitoneal free air. No intraperitoneal or retroperitoneal or pelvic mass lesion or adenopathy or ascites. Small fat-containing umbilical hernia. No suspicious osteolytic or osteoblastic lesions are noted. Schmorl's node at the superior aspect of T12. Prominent degenerative disc disease at L1-2 with associ ated mild retrolisthesis. Moderate degenerative disease at L2-3 with mild retrolisthesis. IMPRESSION: Atherosclerosis; no abdominal aortic dissection or aneurysm Three-vessel runoff into the distal lower legs Cholelithiasis Nonspecific 2 cm or smaller hypoattenuating hepatic lesions Small right renal cysts Status post hysterectomy Small sliding hiatal hernia Diverticulosis of the left colon; no CT evidence of diverticulitis Reviewed, dictated and finalized at [facility]. Reviewed, dictated and finalized at location [facility].
--- NOTE | ~2023-09-11 | US_ITS ---
EXAMINATION: US venous doppler [facility] DATE: 09/15/2023 16:32 INDICATION: Left lower limb pain and swelling. TECHNIQUE: Grayscale ultrasound images without and with compression and Doppler ultrasound images of the bilateral lower extremity veins were obtained. COMPARISON: None. FINDINGS: The visualized portions of right common femoral vein, profunda (deep) femoral vein, femoral vein, pop liteal vein, peroneal veins, posterior tibial veins, and greater saphenous vein outflow are patent. The visualized portions of left common femoral vein, profunda femoral vein, femoral vein, popliteal v ein, peroneal veins, posterior tibial veins, and greater saphenous vein outflow are patent. IMPRESSION: 1. No deep venous thrombosis. Reviewed, dictated and finalized at location [facility].
--- NOTE | ~2023-09-11 | XR_ITS ---
EXAMINATION: XR chest 1V portable DATE: 09/11/2023 04:38 INDICATION: Weakness. TECHNIQUE: A single frontal view of the chest was obtained. COMPARISON: Chest single view 09/09/2023 FINDINGS: There is mild atelectasis in the lower lung zones. No pleural effusion or pneumothorax. The heart size is normal. Calcified right hilar and mediastinal lymph nodes are consistent with old gran ulomatous disease. IMPRESSION: 1. Mild atelectasis in the lower lung zones. Reviewed, dictated and finalized at location [facility].
--- NOTE | ~2023-09-11 | XR_ITS ---
XR chest 1V portable Ordering provider: Hetal Oates MD History: 72 years Female with . Hypoxia . Comparison: September 11, 2023 FINDINGS: MEDIASTINUM: The cardiac silhouette is slightly enlarged. Prominent both dustin. Lucency in the lower mediastinum may indicate sliding hiatus hernia. LUNGS: No pneumothorax. Opacification the left lung base suggestive of atelectasis versus pneumonia w ith minimal left pleural effusion. Minimal opacification in the right lung base. OTHER: No free air under the diaphragm. Degenerative changes of the spine. IMPRESSION: Bibasilar opacification more on the left side which may indicate atelectasis versus pneumonia with le ft pleural effusion. Reviewed, dictated and finalized at location [facility]. IMPRESSION: Bibasilar opacification more on the left side which may indicate atelectasis ve rsus pneumonia with left pleural effusion.
--- NOTE | 2023-09-11 03:45 | ECG_ITS ---
Test Date: 2023-09-11 04:29:21 Measurements Intervals [place] Rate: 84 P: 60 OH: 153 QRS: 0 QRSD: 86 T: 33 QT: 367 QTc: 436 Interpretive Statements SINUS RHYTHM WITH OCCASIONAL VENTRICULAR PREMATURE COMPLEXES LOW QRS VOLTAGE IN PRECORDIAL LEADS [QRS DEFLECTION < 1.0 mV IN CHEST LEADS] POSSIBLE RIGHT VENTRICULAR CONDUCTION DELAY [RSR (QR) IN V1/V2] ABNORMAL ECG Compared to ECG 09/09/2023 19:56:05 NO DIFFERENCE Electronically Signed On 09-11-2023 08:26:12 CDT by Brain Cates M.D.
[2023-09-11] MEDS: SODIUM CHLORIDE 0.9% IV 1,000 ML 999 ML IV CONT ×2 (04:20→05:20)
[2023-09-11] MEDS: ONDANSETRON INJ 4 MG/2 ML VIAL IV PUSH ×3 (04:20→07:21)
--- NOTE | 2023-09-11 04:28 | ED.GENADULT ---
HPI - General Adult General Chief complaint: Unspecified Stated complaint: weakness Time Seen by Provider: 09/11/23 03:29 History of Present Illness HPI narrative: the patient is 72-year-old female who presents emergency department with chief complaint of generalized pain all over and dehydration. Patient was just discharged from the hospital and went home and reports that she is continuing and ache all over reports had no urine output since she has been home and reports that she is not really able to eat and drink much that she has been discharged Related Data Home Medications Medication Instructions Recorded Confirmed cholecalciferol (vitamin D3) 10 10 mcg PO DAILY 01/18/23 09/09/23 mcg (400 unit) capsule calcium carbonate ([place]) 168 mg PO DAILY 08/16/23 09/09/23 mecobalamin (vitamin B12) 500 mcg 500 mcg PO DAILY 08/16/23 09/09/23 chewable tablet omeprazole 20 mg capsule,delayed 20 mg PO DAILY 09/07/23 09/09/23 release Allergies Allergy/AdvReac Type Severity Reaction Status Date / Time No Known Allergies Allergy Verified 09/09/23 23:50 Review of Systems Review of Systems: A 10 system review of systems was completed on the patient and is negative except for what is stated in the HPI. Nursing and ancillary documentation was reviewed. [facility] [place] [place] Past Medical History Medical History KIKI positive Anxiety Cataracts, bilateral Essential hypertension GERD (gastroesophageal reflux disease) Peripheral artery disease Peripheral neuropathy Pernicious anemia Raynauds phenomenon Venous insufficiency of both lower extremities Vitamin D deficiency Surgical History Surgical History History of ligation of vein Bilateral lower extremities Family History Family History Father COPD (chronic obstructive pulmonary disease) Mother COPD (chronic obstructive pulmonary disease) Sibling Atrial fibrillation Sibling Atrial fibrillation Social History Social History Social History: She lives at home with her of 49 years. They have a daughter and a son. She works as a [employer]. She is a lifelong nonsmoker and does not drink alcohol or use illicit substances. Code status: Full code (patient reports she would not want to be on a ventilator long-term) Surrogate decision maker: Smoking status: Never smoker Alcohol intake: never Drinks per week: 1 Substance use: never Substance use type: does not use Do You Feel Safe in your Home?: Yes Lack of Transportation: No Lack of Food: Never True Current Housing: I Have Housing Concerned About Future Housing: No Difficulty Paying Gas/Electric Bills: No Difficulty Paying for Meds: No Currently Unemployed: No Education: Trade/Vocational Certificate Difficulty w/ Childcare or Family Care: No Living arrangements: with family Occupation/Education: occupation Gender identity (if verbalized by the patient): Female Sexual Orientation (if Verbalized by the Patient): Straight or Heterosexual Spiritual care concerns: No Exam Narrative: GENERAL: Well-appearing, well-nourished, and in no acute distress. HEAD: Normocephalic, atraumatic. EYES: PERRLA and EOMI. ENT: Nares clear, no rhinorrhea or epistaxis. Mucous membranes moist. NECK: Supple. CHEST: Clear to auscultation. No respiratory distress. HEART: Regular rate and rhythm. No murmur heard. Normal peripheral pulses. ABDOMEN: Soft, nontender, nondistended, normal active bowel sounds. EXTREMITIES: Normal range of motion. No edema. SKIN: Warm, dry, no rash. NEURO: No focal deficits. Alert and oriented x3. PSYCH: Normal mood and affect. Course Vital Signs Vital signs: Vital Signs Temperature
[2023-09-11 04:39] LABS: Basophils Percent Auto 0.3 % (0.2-1.2); Hematocrit 57.2 % (37.0-47.0); Hemoglobin 18.1 g/dL (12.0-15.0); Immature Granulocyte Absolute 0.13 K/mm3 (0.00-0.031); Immature Granulocyte Percent A 0.9 % (0-0.5); Lymphocytes Percent Auto 6.7 % (18.3-44.2); Mean Corpuscular HGB Conc 31.6 g/dl (32-36); Mean Corpuscular Hemoglobin 29.6 pg (26-34); Mean Corpuscular Volume 93.5 fl (80-100); Mean Platelet Volume 11.8 fl (7.4-10.4); Monocytes Absolute Auto 0.7 K/mm3 (0.1-0.6); Monocytes Percent Auto 4.5 % (2.6-8.5); Neutrophils Percent Auto 87.6 % (45.5-73.1); Platelet Count Result 162 k/mm3 (150-375); Red Blood Count 6.12 M/mm3 (4.2-5.4); White Blood Count 14.9 K/mm3 (4.5-10.0)
[2023-09-11] MEDS: MORPHINE SULFATE (*CRX) 4 MG/ML INJ 2 MG IV PUSH (04:42)
[2023-09-11 04:48] LABS: Prothrombin Time 13.9 Seconds (11.1-14.7)
[2023-09-11 04:49] LABS: Partial Thromboplastin Time 27.2 Seconds (22.3-36.8)
[2023-09-11 05:00] LABS: Alanine Aminotransferase 60 U/L (6-35); Albumin Level 3.1 g/dL (3.5-5.1); Alkaline Phosphatase 75 U/L (38-126); Anion Gap 16 mmol/L (4-12); Aspartate Amino Transferase 128 U/L (14-36); Bilirubin,Total 0.7 mg/dL (0.2-1.3); Blood Urea Nitrogen 22 mg/dL (7-17); Calcium 8.2 mg/dL (8.4-10.2); Carbon Dioxide 15 mmol/L (22-30); Chloride 97 mmol/L (98-107); Estimated CRCL calculation 47 ml/min; Estimated Glomerular Filt Rate 55; Glucose 174 mg/dL (65-110); Magnesium 1.7 mg/dL (1.6-2.3); Sodium 128 mmol/L (137-145)
[2023-09-11 05:02] LABS: Lactic Acid Reflex 8.7 mmol/L (0.7-2.0)
[2023-09-11 05:07] LABS: Procalcitonin 0.1 ng/mL
[2023-09-11 05:35] LABS: Creatine Kinase 6413 U/L (30-135); Troponin I 0.306 ng/mL (0.000-0.034)
[2023-09-11 06:00] LABS: Albumin Level 2.5 g/dL (3.5-5.1); Alkaline Phosphatase 64 U/L (38-126); Anion Gap 14 mmol/L (4-12); Aspartate Amino Transferase 114 U/L (14-36); Bilirubin,Total 0.6 mg/dL (0.2-1.3); Blood Urea Nitrogen 21 mg/dL (7-17); Calcium 7.6 mg/dL (8.4-10.2); Carbon Dioxide 15 mmol/L (22-30); Chloride 99 mmol/L (98-107); Estimated CRCL calculation 52 ml/min; Estimated Glomerular Filt Rate > 60; Glucose 135 mg/dL (65-110); Potassium 3.4 mmol/L (3.4-5.0); Sodium 128 mmol/L (137-145)
[2023-09-11 06:03] LABS: Lactic Acid Reflex 7.3 mmol/L (0.7-2.0)
[2023-09-11 06:10] LABS: Alanine Aminotransferase 54 U/L (6-35)
[2023-09-11 06:52] LABS: Add Urine Microscopic? YES; Appearance Urine Turbid (Clear); Bacteria Urine None Seen /hpf; Bilirubin Urine Negative (Negative); Blood Urine 3+ (Negative); Color Urine Dark Yellow (Yellow); Glucose Urine UA Negative (Negative); Granular Casts Urine Present /lpf; Ketones Urine Negative (Negative); Leukocyte Esterase Ur 1+ LEU/UL (Negative); Mucus Urine Present /lpf; Nitrate Urine Negative (Negative); Non Pathogenic Casts >20; Protein Urine 2+ mg/dL (Negative); RBC Urine 51-100 /hpf (0-2); Specific Grav Ur 1.039 (1.001-1.035); Squamous Epithelial Cell Urine Many /hpf (Few); WBC Urine 51-100 /hpf (0-3); pH Urine 5.5 (5.0-9.0)
[2023-09-11] MEDS: LACTATED RINGERS 1,000 ML 200 ML IV CONT ×2 (07:21→13:01)
[2023-09-11 07:35] LABS: Reflex Lactic Acid Yes or No Add Lactic
[2023-09-11] MEDS: THIAMINE 500 MG/NS 100 ML 500 MG/100 ML BAG 200 MG IVPB (07:56)
[2023-09-11 08:10] LABS: Lactic Acid 5.6 mmol/L (0.7-2.0)
[2023-09-11 10:46] LABS: Troponin I 0.258 ng/mL (0.000-0.034)
--- NOTE | 2023-09-11 11:37 | PM.IMHP ---
H&P: HPI History of Present Illness Date/Time: 09/11/23 11:37 Chief Complaint: Muscle cramping Narrative: This is a pleasant 72-year-old female with a history of anxiety, essential hypertension, GERD, peripheral artery disease, Raynaud's phenomenon in the toes and fingers, pernicious anemia, vitamin-D deficiency, KIKI positivity (currently establishing with rheumatology) who presents with severe muscle cramping all over the body. She was recently discharged from [facility] on 09/10/23 after having generalized weakness and muscle aches, shortness of breath, nausea but no vomiting, diarrhea. She had went to an urgent care and tested negative for influenza. She took 5 COVID home test and they were all negative. It was suspected she had a viral syndrome. Then came to the ER on the next day Wednesday and received fluids. She was then sent home. Ultimately, on presentation on 09/09/2022 she was admitted. Her symptoms resolved and her quad viral screen was negative. She was sent home appropriately as she was feeling better. She ate a roast beef sandwich for dinner just prior to discharge. She went home and she ate chicken noodle soup and overnight she quickly began having extreme muscle cramping and pain all over the body again. She was then brought in on the night of 09/10/2023. She has not restarted her Cymbalta. In the repeat ER presentation on the night of 09/09/2022 she received thiamine 500 mg x 1, unclear why as we are waiting charting to be completed at the moment. Otherwise, she received 2 L isotonic fluid bolus, Zofran 4 mg IV x1, lactated Ringer's started at 200 cc/hour, morphine 2 mg IV push x1 which the patient reported made her stomach and chest upset. Chest x-ray demonstrated mild atelectasis. A urinalysis was taken which was abnormal but appears very contaminated. Her white blood cell count 14.9 which is elevated since discharge, her hemoglobin 18.1 which is elevated from 16 from the last discharge, platelet count 162. No bandemia identified. INR 1.0. Sodium 128 x2, her bicarb 15 x 2, the studies were taken back to back basically. Her anion gap coming down to 14, lactic acid coming down from 8.7-7 0.3-5.6. Calcium 7.6, AST 114, ALT 54, her creatinine kinase 6413, her troponin 0.3062 then 0.258, albumin 2.5, procalcitonin 0.1. Upon interviewing the patient in room 206 bed 1 with her sister at bedside the patient is pleasant and A&O x4 and reports her muscle cramping has improved greatly after fluids and morphine. The patient denies any nausea and wants to eat already. Review of Systems Review of Systems: All systems reviewed & are unremarkable except as noted in HPI and below (Subjective) [facility] Past Medical History Medical History (Updated 09/11/23 @ 11:50 by Joyce Khan MD) KIKI positive Anxiety Cataracts, bilateral Essential hypertension GERD (gastroesophageal reflux disease) Peripheral artery disease Peripheral neuropathy Pernicious anemia Raynauds phenomenon Venous insufficiency of both lower extremities Vitamin D deficiency Surgical History Surgical History History of ligation of vein Bilateral lower extremities Family History Family History Father COPD (chronic obstructive pulmonary disease) Mother COPD (chronic obstructive pulmonary disease) Sibling Atrial fibrillation Sibling Atrial fibrillation Social History Social History Social History: She lives at home with her of 49 years. They have a daughter and a son. She works as a [employer]. She is a lifelong nonsmoker and does not drink alcohol or use illicit substances. Code status: Full code (patient reports she would not want to be on a ventilator long-term) Surrogate decision maker: Smoking status: Never smoker Alcohol inta
[2023-09-11 11:38] LABS: Basophils Absolute Auto 0.1 K/mm3 (0.0-0.1); Basophils Percent Auto 0.3 % (0.2-1.2); Eosinophils Percent Auto 0.1 % (0-4.4); Hematocrit 51.3 % (37.0-47.0); Hemoglobin 16.9 g/dL (12.0-15.0); Immature Granulocyte Absolute 0.07 K/mm3 (0.00-0.031); Immature Granulocyte Percent A 0.5 % (0-0.5); Lymphocytes Absolute Auto 1.27 K/mm3 (0.9-3.2); Lymphocytes Percent Auto 8.9 % (18.3-44.2); Mean Corpuscular HGB Conc 32.9 g/dl (32-36); Mean Corpuscular Hemoglobin 30.2 pg (26-34); Mean Corpuscular Volume 91.6 fl (80-100); Mean Platelet Volume 11.5 fl (7.4-10.4); Monocytes Absolute Auto 0.8 K/mm3 (0.1-0.6); Monocytes Percent Auto 5.5 % (2.6-8.5); Neutrophils Absolute Auto 12.1 K/mm3 (1.3-6.7); Neutrophils Percent Auto 84.7 % (45.5-73.1); Platelet Count Result 164 k/mm3 (150-375); Red Cell Distribution Width 14.7 % (11.5-14.5); White Blood Count 14.3 K/mm3 (4.5-10.0)
[2023-09-11 11:44] LABS: Add Urine Microscopic? YES; Appearance Urine Turbid (Clear); Bacteria Urine None Seen /hpf; Bilirubin Urine Negative (Negative); Blood Urine Trace (Negative); Color Urine Dark Yellow (Yellow); Glucose Urine UA Negative (Negative); Ketones Urine Negative (Negative); Leukocyte Esterase Ur Negative LEU/UL (Negative); Need Manual Microscopic Reviewed; Nitrate Urine Negative (Negative); Protein Urine 2+ mg/dL (Negative); Specific Grav Ur 1.045 (1.001-1.035); Squamous Epithelial Cell Urine Moderate /hpf (Few); WBC Urine 0-5 /hpf (0-3)
[2023-09-11 11:52] LABS: Alanine Aminotransferase 55 U/L (6-35); Albumin Level 2.6 g/dL (3.5-5.1); Alkaline Phosphatase 62 U/L (38-126); Anion Gap 10 mmol/L (4-12); Aspartate Amino Transferase 125 U/L (14-36); Bilirubin,Total 0.7 mg/dL (0.2-1.3); Blood Urea Nitrogen 21 mg/dL (7-17); Calcium 7.7 mg/dL (8.4-10.2); Carbon Dioxide 19 mmol/L (22-30); Chloride 99 mmol/L (98-107); Estimated CRCL calculation 72 ml/min; Estimated Glomerular Filt Rate > 60; Glucose 119 mg/dL (65-110); Magnesium 1.4 mg/dL (1.6-2.3); Potassium 4.5 mmol/L (3.4-5.0); Sodium 128 mmol/L (137-145)
--- NOTE | 2023-09-11 12:09 | PC.NURSE ---
0935- pt admitted from ER- IVF infusing LR at 200 cc/hr- Left AC. pt resting with eyes closed- answers appropriately. Skin cool to touch- legs mottled-= temp 96.2 rectal- unable to get skin temp. monitor on SR ;pt and daughter oriented to room and routines of floor.
[2023-09-11 12:11] LABS: Creatine Kinase 4895 U/L (30-135)
[2023-09-11] MEDS: LORazepam (*CRX) 0.5 MG TABLET PO ×3 (12:19→20:05)
[2023-09-11] MEDS: ACETAMINOPHEN 325 MG TABLET 650 MG PO (12:21)
--- NOTE | 2023-09-11 14:01 | PCOTNOTE ---
Attempted OT evaluation; Per RN pt. is finally resting and requests she be seen tomorrow. Will attempt again tomorrow as able.
[2023-09-11] MEDS: MAGNESIUM SULFATE 3GM/D5W100ML 3 GM/100 ML BAG IVPB (14:34)
--- NOTE | 2023-09-11 14:59 | PCPTNOTE ---
Attempted to see for PT evaluation, per RN hold pt today and attempt to see tomorrow.
[2023-09-11] MEDS: HYDROcodone/acetaminophen (*CRX) 10-325 MG TABLET 1 TAB PO ×2 (15:31→23:45)
[2023-09-11 18:11] LABS: Hematocrit 52.1 % (37.0-47.0); Mean Corpuscular HGB Conc 32.6 g/dl (32-36); Mean Corpuscular Hemoglobin 30.2 pg (26-34); Mean Corpuscular Volume 92.5 fl (80-100); Mean Platelet Volume 11.8 fl (7.4-10.4); Platelet Count Result 158 k/mm3 (150-375); Red Blood Count 5.63 M/mm3 (4.2-5.4); Red Cell Distribution Width 14.6 % (11.5-14.5)
[2023-09-11] MEDS: LACTATED RINGERS 1,000 ML 150 ML IV CONT (18:14)
[2023-09-11 18:29] LABS: Rheumatoid Factor < 12.0 IU/ML (<12)
[2023-09-11 18:50] LABS: Alanine Aminotransferase 63 U/L (6-35); Albumin Level 2.5 g/dL (3.5-5.1); Alkaline Phosphatase 71 U/L (38-126); Anion Gap 11 mmol/L (4-12); Aspartate Amino Transferase 138 U/L (14-36); Bilirubin,Total 0.7 mg/dL (0.2-1.3); Blood Urea Nitrogen 21 mg/dL (7-17); CRP 0.7 mg/dL (<1.0); Calcium 8.1 mg/dL (8.4-10.2); Carbon Dioxide 17 mmol/L (22-30); Chloride 99 mmol/L (98-107); Estimated CRCL calculation 72 ml/min; Estimated Glomerular Filt Rate > 60; Glucose 108 mg/dL (65-110); Potassium 4.2 mmol/L (3.4-5.0); Sodium 127 mmol/L (137-145)
[2023-09-11 18:59] LABS: Creatine Kinase 5501 U/L (30-135)
[2023-09-11] MEDS: HEPARIN SODIUM 5,000 UNITS/ML VIAL 5000 UNITS SUB-Q (20:05)
[2023-09-12] VITALS (29 sets, daily range): BP systolic 112–183; BP diastolic 59–109; PULSE 90–108; RESP 16–25; TEMP 36.4–36.6; O2SAT 87–97
[2023-09-12] MEDS: LACTATED RINGERS 1,000 ML 150 ML IV CONT ×2 (00:45→08:32)
[2023-09-12] MEDS: ONDANSETRON INJ 4 MG/2 ML VIAL IV PUSH (05:02)
[2023-09-12 05:11] LABS: Basophils Percent Auto 0.2 % (0.2-1.2); Hematocrit 52.4 % (37.0-47.0); Hemoglobin 17.5 g/dL (12.0-15.0); Immature Granulocyte Absolute 0.11 K/mm3 (0.00-0.031); Immature Granulocyte Percent A 0.6 % (0-0.5); Lymphocytes Absolute Auto 1.32 K/mm3 (0.9-3.2); Lymphocytes Percent Auto 7.5 % (18.3-44.2); Mean Corpuscular HGB Conc 33.4 g/dl (32-36); Mean Corpuscular Hemoglobin 30.5 pg (26-34); Mean Corpuscular Volume 91.3 fl (80-100); Mean Platelet Volume 12.3 fl (7.4-10.4); Monocytes Absolute Auto 1.1 K/mm3 (0.1-0.6); Monocytes Percent Auto 6.1 % (2.6-8.5); Neutrophils Absolute Auto 15.1 K/mm3 (1.3-6.7); Neutrophils Percent Auto 85.6 % (45.5-73.1); Platelet Count Result 167 k/mm3 (150-375); Red Blood Count 5.74 M/mm3 (4.2-5.4); Red Cell Distribution Width 14.8 % (11.5-14.5); White Blood Count 17.6 K/mm3 (4.5-10.0)
[2023-09-12 05:31] LABS: CRP 1.2 mg/dL (<1.0)
[2023-09-12 05:33] LABS: Lactic Acid Reflex 4.8 mmol/L (0.7-2.0)
[2023-09-12 05:34] LABS: Alanine Aminotransferase 73 U/L (6-35); Albumin Level 2.6 g/dL (3.5-5.1); Alkaline Phosphatase 66 U/L (38-126); Anion Gap 8 mmol/L (4-12); Aspartate Amino Transferase 148 U/L (14-36); Bilirubin,Total 0.8 mg/dL (0.2-1.3); Blood Urea Nitrogen 21 mg/dL (7-17); Calcium 7.6 mg/dL (8.4-10.2); Carbon Dioxide 19 mmol/L (22-30); Chloride 97 mmol/L (98-107); Estimated CRCL calculation 72 ml/min; Estimated Glomerular Filt Rate > 60; Glucose 111 mg/dL (65-110); Magnesium 2.1 mg/dL (1.6-2.3); Potassium 4.2 mmol/L (3.4-5.0); Sodium 124 mmol/L (137-145)
[2023-09-12 05:43] LABS: Procalcitonin 0.1 ng/mL
[2023-09-12 05:46] LABS: Creatine Kinase 4402 U/L (30-135)
[2023-09-12 06:33] LABS: Glucose Point of Care < 20 mg/dl (65-105)
[2023-09-12 06:33] LABS: Glucose Point of Care 26 mg/dl (65-105)
[2023-09-12 06:33] LABS: Glucose Point of Care 104 mg/dl (65-105)
--- NOTE | 2023-09-12 06:43 | PC.NURSE ---
0619 and 0620 blood sugars are not accurate. Patient's fingers cold d/t Raynaud's. Blood sugar rechecked from patient's ear and normal reading obtained.
[2023-09-12] MEDS: LACTATED RINGERS 2,000 ML 500 ML IV CONT (06:51)
[2023-09-12 08:07] LABS: Reflex Lactic Acid Yes or No Add Lactic
[2023-09-12] MEDS: HEPARIN SODIUM 5,000 UNITS/ML VIAL 5000 UNITS SUB-Q ×2 (08:24→20:54)
[2023-09-12] MEDS: CALCIUM CARBONATE (TUMS) 500 MG (200 MG ELEMENTAL) PO (08:25)
[2023-09-12] MEDS: predniSONE 20 MG TABLET PO (08:25)
[2023-09-12] MEDS: PANTOPRAZOLE 40 MG TABLET PO (08:25)
--- NOTE | 2023-09-12 08:51 | PCPTNOTE ---
Attempted to see for PT evaluation, pt refused stating she is in 10/10 pain when she tries to move her legs. RN notified, will continue to follow.
--- NOTE | 2023-09-12 09:54 | PCOTNOTE ---
Attempted OT evaluation. Pt. refused due to pain with movement. Will attempt again as able.
[2023-09-12 10:06] LABS: Sodium Urine Random 6 meq/L
[2023-09-12] MEDS: ACETAMINOPHEN 325 MG TABLET 650 MG PO (11:58)
[2023-09-12] MEDS: methylPREDNISolone SOD SUCC 125 MG VIAL IV PUSH ×3 (11:58→20:54)
--- NOTE | 2023-09-12 12:21 | ECG_ITS ---
Test Date: 2023-09-12 12:33:49 Measurements Intervals [place] Rate: 111 P: 48 CO: 150 QRS: -19 QRSD: 121 T: 14 QT: 289 QTc: 394 Interpretive Statements SINUS TACHYCARDIA RIGHT BUNDLE BRANCH BLOCK [120+ ms QRS DURATION, UPRIGHT V1, 40+ ms S IN I/aVL/V4/V5/V6] ABNORMAL ECG Compared to ECG 09/11/2023 04:29:21 HEART RATE IS INCREASED AND RIGHT BUNDLE BRANCH CONDUCTION IS NOTED, PROBABLY RATE DEPENDENT Electronically Signed On 09-13-2023 14:51:26 CDT by Brain Cates M.D.
[2023-09-12 12:31] LABS: Anion Gap 8 mmol/L (4-12); Blood Urea Nitrogen 19 mg/dL (7-17); Calcium 7.7 mg/dL (8.4-10.2); Carbon Dioxide 17 mmol/L (22-30); Chloride 97 mmol/L (98-107); Estimated CRCL calculation 83 ml/min; Estimated Glomerular Filt Rate > 60; Glucose 121 mg/dL (65-110); Lactic Acid Reflex 3.7 mmol/L (0.7-2.0); Potassium 4.4 mmol/L (3.4-5.0); Sodium 122 mmol/L (137-145)
[2023-09-12] MEDS: DEXTROSE 50% 25 GM/50 ML SYRINGE (12:50)
[2023-09-12] MEDS: amLODIPine BESYLATE 10 MG TABLET PO (13:00)
[2023-09-12 13:17] LABS: Troponin I 0.408 ng/mL (0.000-0.034)
[2023-09-12] MEDS: IPRATROPIUM BR 0.02% INH SOLN 0.5 MG/2.5 ML VIAL INHALATION (14:02)
--- NOTE | 2023-09-12 14:31 | PC.NURSE ---
At 1244, RN was notified that patient was complaining of chest pain. RN went to assess patient. EKG and vital signs obtained. Patient is diaphoretic, hypertensive, tachycardic with mottling present generalized but more prominent on legs. Patient is complaining of 12/10 back pain that is sharp and severe. Dr. Khan notified immediately and came to bedside to assess. Serum troponin, and CK levels drawn for evaluation, EKG reviewed by provider, stat CT ordered and nephrology consulted. RN applied 2L NC for dyspnea symptoms. Blood glucose obtained and 25 gm of dextrose IV ordered IV push by provider. RN to continue to monitor patient symptoms.
--- NOTE | 2023-09-12 14:48 | PM.CNNEP ---
Assessment and Plan Assessment and plan (1) Hyponatremia: Code(s): E87.1 - Hypo-osmolality and hyponatremia Status: Acute Assessment and Plan: acute normal sodium levels on previous hospitalization several days ago admission sodium 128mmol/L noted progressive drop with most recent sodium down to 122mmol/L urine studies suggest prerenal azotemia/volume depletion however, with IVF resuscitation, sodium has not improved suspect drop in sodium multifactorial: prerenal factors acute pain pain medications fluctuating CPK/rhabdomyolysis PPI use add fluid restriction start salt tabs (and possibly lasix) consider 3% saline if sodium drops below 120mmol/L check TSH, cortisol, SPEP and UPEP; follow-up on serum/urine osmolality follow trend of repeat sodiums (2) Lactic acidosis: Code(s): E87.20 - Acidosis, unspecified Status: Acute Assessment and Plan: as noted on admission appears to be downtrending with IVF resuscitation etiology?? continue supportive therapy (3) Rhabdomyolysis: Code(s): M62.82 - Rhabdomyolysis Status: Acute Assessment and Plan: elevated CPKs noted getting IVFs follow trend of CPK (4) HTN (hypertension): Code(s): I10 - Essential (primary) hypertension Status: Acute Assessment and Plan: fluctuating but suspect pain playing a role follow trend of hemodynamics (5) Erythrocytosis: Code(s): D75.1 - Secondary polycythemia Status: Acute Assessment and Plan: high H/H noted on admission possibly partly related to volume depletion follow trend of H/H Case discussed with Dr. Khan. Discussed situation and issues with regard to her low sodium level with family at bedside as well. I will continue follow the patient with you while she remains hospitalized make further recommendations as deemed necessary. Thank you for allowing me to participate in the care of this patient. History of Present Illness Reason for Consult Consult date: 09/12/23 Reason for consult: hyponatremia Chief Complaint Chief complaint: rhabdomyolysis,elevated troponin,lactic acidosis History of Present Illness Narrative: Most of the information I have obtained is from review of the electronic medical record as well as discussion with the physician/nurses involved in the patient's care as well as family at bedside as is difficult to get a full and complete history from the patient due to her issues with significant pain. The patient is a 72-year-old female with a past medical history as outlined below who presented to [facility] Emergency Room with complaints of severe muscle cramping and pain all over her body. The patient was just recently discharged from [facility] approximately 24 hours ago for generalized weakness and muscle aches. She was apparently treated with IV fluids and supportive therapy and her viral testing done at that time was negative. By report, she was feeling better on the day of discharge. apparently, while at home on the evening of the day of discharge, she began having extreme muscle cramping and pain all over body once again. Initially she thought it would past but he continued to worsen and hence she was brought back to the emergency room for further assessment. Workup and evaluation in the emergency room demonstrated the patient be hemodynamically stable but in clear distress secondary to the muscle cramping and pain. She received aggressive IV fluid resuscitation as well as pain medications in effort to alleviate her symptoms. Further testing demonstrated a chest x-ray with no acute findings, a urinalysis that was abnormal but was thought to be contaminated, and a CBC with a mildly elevated white blood cell count of 14.9, elevated hemoglobin of 18.1, and a normal platelet count as well as a chemistry that showed a sodium of 128, low CO2 at 15 and normal renal
--- NOTE | 2023-09-12 14:48 | P.CONNP_ITS ---
Assessment and Plan Assessment and plan (1) Hyponatremia: Code(s): E87.1 - Hypo-osmolality and hyponatremia Status: Acute Assessment and Plan: * acute * normal sodium levels on previous hospitalization several days ago * admission sodium 128mmol/L * noted progressive drop with most recent sodium down to 122mmol/L * urine studies suggest prerenal azotemia/volume depletion * however, with IVF resuscitation, sodium has not improved * suspect drop in sodium multifactorial: * prerenal factors * acute pain * pain medications * fluctuating CPK/rhabdomyolysis * PPI use * add fluid restriction * start salt tabs (and possibly lasix) * consider 3% saline if sodium drops below 120mmol/L * check TSH, cortisol, SPEP and UPEP; follow-up on serum/urine osmolality * follow trend of repeat sodiums (2) Lactic acidosis: Code(s): E87.20 - Acidosis, unspecified Status: Acute Assessment and Plan: * as noted on admission * appears to be downtrending with IVF resuscitation * etiology?? * continue supportive therapy (3) Rhabdomyolysis: Code(s): M62.82 - Rhabdomyolysis Status: Acute Assessment and Plan: * elevated CPKs noted * getting IVFs * follow trend of CPK (4) HTN (hypertension): Code(s): I10 - Essential (primary) hypertension Status: Acute Assessment and Plan: * fluctuating but suspect pain playing a role * follow trend of hemodynamics (5) Erythrocytosis: Code(s): D75.1 - Secondary polycythemia Status: Acute Assessment and Plan: * high H/H noted on admission * possibly partly related to volume depletion * follow trend of H/H Case discussed with Dr. Khan. Discussed situation and issues with regard to her low sodium level with family at bedside as well. I will continue follow the patient with you while she remains hospitalized make further recommendations as deemed necessary. Thank you for allowing me to participate in the care of this patient. History of Present Illness Reason for Consult Consult date: 09/12/23 Reason for consult: hyponatremia Chief Complaint Chief complaint: rhabdomyolysis,elevated troponin,lactic acidosis History of Present Illness Narrative: Most of the information I have obtained is from review of the electronic medical record as well as discussion with the physician/nurses involved in the patient's care as well as family at bedside as is difficult to get a full and complete history from the patient due to her issues with significant pain. The patient is a 72-year-old female with a past medical history as outlined below who presented to [facility] Emergency Room with complaints of severe muscle cramping and pain all over her body. The patient was just recently discharged from [facility] approximately 24 hours ago for generalized weakness and muscle aches. She was apparently treated with IV fluids and supportive therapy and her viral testing done at that time was negative. By report, she was feeling better on the day of discharge. apparently, while at home on the evening of the day of discharge, she began having extreme muscle cramping and pain all over body once again. Initially she thought it would past but he continued to worsen and hence she was brought back to the emergency room for further assessment. Workup and evaluation in the emergency room demonstrated the patient be hemodynamically stable but in clear distress secondary to the muscle cramping and pain. She received aggressive IV
[2023-09-12] MEDS: SODIUM CHLORIDE 1 GM TABLET PO (15:02)
[2023-09-12] MEDS: LORazepam (*CRX) 0.5 MG TABLET PO ×2 (15:07→20:54)
[2023-09-12 15:27] LABS: Glucose Point of Care 69 mg/dl (65-105)
[2023-09-12 15:27] LABS: Glucose Point of Care 198 mg/dl (65-105)
[2023-09-12 15:27] LABS: Glucose Point of Care 129 mg/dl (65-105)
[2023-09-12 16:41] LABS: Creatinine Urine 69.2 mg/dL; Total Protein Urine Random 11 mg/dL; Ur Ttl Prot Creatinine Ratio 0.16 mg/mg (0-0.20)
[2023-09-12 17:30] LABS: Alanine Aminotransferase 74 U/L (6-35); Albumin Level 2.6 g/dL (3.5-5.1); Alkaline Phosphatase 68 U/L (38-126); Anion Gap 11 mmol/L (4-12); Aspartate Amino Transferase 129 U/L (14-36); Bilirubin,Total 0.9 mg/dL (0.2-1.3); Blood Urea Nitrogen 18 mg/dL (7-17); Calcium 7.7 mg/dL (8.4-10.2); Carbon Dioxide 18 mmol/L (22-30); Chloride 96 mmol/L (98-107); Creatine Kinase 2648 U/L (30-135); Estimated CRCL calculation 72 ml/min; Estimated Glomerular Filt Rate > 60; Glucose 118 mg/dL (65-110); Potassium 4.2 mmol/L (3.4-5.0); Sodium 125 mmol/L (137-145); Troponin I 0.546 ng/mL (0.000-0.034)
[2023-09-12] MEDS: FUROSEMIDE INJ 100 MG/10 ML VIAL 60 MG IV PUSH (17:37)
[2023-09-12 22:48] LABS: Anion Gap 12 mmol/L (4-12); Blood Urea Nitrogen 19 mg/dL (7-17); Calcium 7.8 mg/dL (8.4-10.2); Carbon Dioxide 17 mmol/L (22-30); Chloride 96 mmol/L (98-107); Estimated CRCL calculation 72 ml/min; Estimated Glomerular Filt Rate > 60; Glucose 121 mg/dL (65-110); Potassium 4.3 mmol/L (3.4-5.0); Sodium 125 mmol/L (137-145)
[2023-09-12 23:40] LABS: Troponin I 0.707 ng/mL (0.000-0.034)
[2023-09-13] VITALS (21 sets, daily range): BP systolic 110–116; BP diastolic 46–81; PULSE 93–105; RESP 16–22; TEMP 35.7–36.4; O2SAT 90–95
[2023-09-13] MEDS: methylPREDNISolone SOD SUCC 125 MG VIAL IV PUSH ×6 (00:31→21:12)
[2023-09-13] MEDS: HYDROcodone/acetaminophen (*CRX) 10-325 MG TABLET 1 TAB PO ×3 (00:34→20:15)
--- NOTE | 2023-09-13 00:35 | PC.NURSE ---
Patient continuously pulling off cpap mask. Patient placed on venturi mask at 15L 50% fio2.
[2023-09-13 04:04] LABS: Basophils Absolute Auto 0.1 K/mm3 (0.0-0.1); Basophils Percent Auto 0.3 % (0.2-1.2); Hematocrit 58.1 % (37.0-47.0); Hemoglobin 19.1 g/dL (12.0-15.0); Immature Granulocyte Absolute 0.19 K/mm3 (0.00-0.031); Lymphocytes Absolute Auto 0.82 K/mm3 (0.9-3.2); Lymphocytes Percent Auto 4.1 % (18.3-44.2); Mean Corpuscular HGB Conc 32.9 g/dl (32-36); Mean Corpuscular Hemoglobin 30.2 pg (26-34); Mean Corpuscular Volume 91.9 fl (80-100); Monocytes Absolute Auto 0.6 K/mm3 (0.1-0.6); Monocytes Percent Auto 2.8 % (2.6-8.5); Neutrophils Absolute Auto 18.3 K/mm3 (1.3-6.7); Neutrophils Percent Auto 91.8 % (45.5-73.1); Platelet Count Result 159 k/mm3 (150-375); Red Blood Count 6.32 M/mm3 (4.2-5.4); Red Cell Distribution Width 16.1 % (11.5-14.5); White Blood Count 19.9 K/mm3 (4.5-10.0)
[2023-09-13 04:34] LABS: Procalcitonin 0.1 ng/mL
[2023-09-13 04:39] LABS: Platelet Clumps Present; Platelet Estimate Adequate (Adequate)
[2023-09-13 04:40] LABS: Anisocytosis 1+; Large Platelets Present; Schistocytes None Seen
[2023-09-13 04:42] LABS: Alanine Aminotransferase 86 U/L (6-35); Albumin Level 2.9 g/dL (3.5-5.1); Alkaline Phosphatase 68 U/L (38-126); Anion Gap 14 mmol/L (4-12); Aspartate Amino Transferase 130 U/L (14-36); Bilirubin,Total 1.1 mg/dL (0.2-1.3); Blood Urea Nitrogen 21 mg/dL (7-17); Carbon Dioxide 15 mmol/L (22-30); Chloride 97 mmol/L (98-107); Estimated CRCL calculation 74 ml/min; Estimated Glomerular Filt Rate > 60; Glucose 107 mg/dL (65-110); Magnesium 2.2 mg/dL (1.6-2.3); Phosphorus 3.4 mg/dL (2.5-4.5); Potassium 4.6 mmol/L (3.4-5.0); Sodium 126 mmol/L (137-145)
[2023-09-13 04:48] LABS: Lactic Acid Reflex 5.3 mmol/L (0.7-2.0)
[2023-09-13 06:30] LABS: Creatine Kinase 2137 U/L (30-135)
[2023-09-13 07:00] LABS: Reflex Lactic Acid Yes or No Add Lactic
[2023-09-13 07:54] LABS: Lactic Acid 5.6 mmol/L (0.7-2.0)
[2023-09-13] MEDS: PANTOPRAZOLE 40 MG TABLET PO (09:37)
[2023-09-13] MEDS: SODIUM CHLORIDE 1 GM TABLET PO ×2 (09:37→17:04)
[2023-09-13] MEDS: HEPARIN SODIUM 5,000 UNITS/ML VIAL 5000 UNITS SUB-Q ×2 (09:37→21:12)
[2023-09-13] MEDS: amLODIPine BESYLATE 10 MG TABLET PO (09:37)
--- NOTE | 2023-09-13 10:01 | PM.PNNEP ---
Progress Note: A&P Assessment and Plan (1) Hyponatremia: Code(s): E87.1 - Hypo-osmolality and hyponatremia Status: Acute Assessment and Plan: slow improvement acute normal sodium levels on previous hospitalization several days ago admission sodium 128mmol/L noted progressive drop with most recent sodium down to 122mmol/L on 09/12/23 urine studies suggest prerenal azotemia/volume depletion however, with IVF resuscitation, sodium has not improved suspect drop in sodium multifactorial: prerenal factors acute pain pain medications fluctuating CPK/rhabdomyolysis PPI use on fluid restriction on salt tabs (and possibly lasix) consider 3% saline if sodium drops below 120mmol/L evalution to date: TSH good cortisol acceptable (although already on steroids) SPE/UPE pending follow trend of repeat sodiums (2) Lactic acidosis: Code(s): E87.20 - Acidosis, unspecified Status: Acute Assessment and Plan: as noted on admission appears to be downtrending with IVF resuscitation etiology?? continue supportive therapy (3) Rhabdomyolysis: Code(s): M62.82 - Rhabdomyolysis Status: Acute Assessment and Plan: elevated CPKs noted getting IVFs follow trend of CPK (4) HTN (hypertension): Code(s): I10 - Essential (primary) hypertension Status: Acute Assessment and Plan: fluctuating but suspect pain playing a role follow trend of hemodynamics (5) Erythrocytosis: Code(s): D75.1 - Secondary polycythemia Status: Acute Assessment and Plan: high H/H noted on admission possibly partly related to volume depletion follow trend of H/H Will continue to follow. Subjective Date/time seen: 09/13/23 10:01 Interval history: Follow-up for acute hyponatremia. Sodium has improved with current interventions/therapy (IVFs, fluid restriction, salt tabs, PRN diuresis); lactic acid continues to fluctuate and CPK is trending down; still awaiting transfer although patient now requesting transfer to [place] (initial plan was transfer to [facility]). Exam Narrative: General: elderly female in mild distress Heart: normal S1 and S2; no rub Lungs: clear to auscultation Abdomen: soft, nontender, nondistended, positive bowel sounds Extremities: no cyanosis or clubbing; no edema Skin: fluctuating skin changes noted Objective Data Vital Signs Vital Signs: Vital Signs Temp Pulse Resp BP Pulse Ox O2 Del Method O2 Flow Rate 09/13/23 09:48 Nasal Cannula 4 09/13/23 08:40 Nasal Cannula 6 09/13/23 07:46 97.6 F 99 20 112/81 95 09/13/23 06:00 105 H 09/13/23 04:00 94 09/13/23 04:00 95 High Flow Nasal Cannula 8 09/13/23 03:30 97.6 F 93 20 110/46 L 94 09/13/23 02:00 96 09/13/23 00:00 95 09/13/23 00:00 94 Autopap 5 09/12/23 23:25 97.5 F L 98 20 123/59 L 90 09/12/23 22:25 100 25 H 90 Autopap 09/12/23 22:00 100 09/12/23 21:45 93 Nasal Cannula 10 09/12/23 20:00 92 Venturi Mask 15 09/12/23 20:00 104 H 09/12/23 19:49 97.8 F 104 H 20 112/70 93 09/12/23 18:50 90 High Flow Nasal Cannula 15 09/12/23 18:45 88 L High Flow Nasal Cannula 10 09/12/23 18:30 87 L High Flow Nasal Cannula 8 09/12/23 19:12 92 Venturi Mask 15 09/12/23 18:00 104 H 09/12/23 12:50 94 Nasal Cannula 2 09/12/23 17:07 90 Nasal Cannula 6 09/12/23 16:00 104 H 09/12/23 14:00 107 H 09/12/23 16:00 90 Nasal Cannula 4 09/12/23 16:00 97.6 F 102 H 20 141/81 H 92 09/12/23 14:07 102 H 24 H 09/12/23 14:02 108 H 24 H 09/12/23 14:02 108 H 24 H 91 Nasal Cannula 3 09/12/23 12:44 183/109 H 95 09/12/23 13:03 104 H 150/97 H Intake/Output Intake/Output: Intake & Output 09/10/23 09/11/23 09/12/23 09/13/23
--- NOTE | 2023-09-13 10:01 | P.PNNP_ITS ---
Progress Note: A&P Assessment and Plan (1) Hyponatremia: Code(s): E87.1 - Hypo-osmolality and hyponatremia Status: Acute Assessment and Plan: * slow improvement * acute * normal sodium levels on previous hospitalization several days ago * admission sodium 128mmol/L * noted progressive drop with most recent sodium down to 122mmol/L on 09/12/23 * urine studies suggest prerenal azotemia/volume depletion * however, with IVF resuscitation, sodium has not improved * suspect drop in sodium multifactorial: * prerenal factors * acute pain * pain medications * fluctuating CPK/rhabdomyolysis * PPI use * on fluid restriction * on salt tabs (and possibly lasix) * consider 3% saline if sodium drops below 120mmol/L * evalution to date: * TSH good * cortisol acceptable (although already on steroids) * SPE/UPE pending * follow trend of repeat sodiums (2) Lactic acidosis: Code(s): E87.20 - Acidosis, unspecified Status: Acute Assessment and Plan: * as noted on admission * appears to be downtrending with IVF resuscitation * etiology?? * continue supportive therapy (3) Rhabdomyolysis: Code(s): M62.82 - Rhabdomyolysis Status: Acute Assessment and Plan: * elevated CPKs noted * getting IVFs * follow trend of CPK (4) HTN (hypertension): Code(s): I10 - Essential (primary) hypertension Status: Acute Assessment and Plan: * fluctuating but suspect pain playing a role * follow trend of hemodynamics (5) Erythrocytosis: Code(s): D75.1 - Secondary polycythemia Status: Acute Assessment and Plan: * high H/H noted on admission * possibly partly related to volume depletion * follow trend of H/H Will continue to follow. Subjective Date/time seen: 09/13/23 10:01 Interval history: Follow-up for acute hyponatremia. Sodium has improved with current interventions/therapy (IVFs, fluid restriction, salt tabs, PRN diuresis); lactic acid continues to fluctuate and CPK is trending down; still awaiting transfer although patient now requesting transfer to [place] (initial plan was transfer to [facility]). Exam Narrative: General: elderly female in mild distress Heart: normal S1 and S2; no rub Lungs: clear to auscultation Abdomen: soft, nontender, nondistended, positive bowel sounds Extremities: no cyanosis or clubbing; no edema Skin: fluctuating skin changes noted Objective Data Vital Signs Vital Signs: Vital Signs Temp Pulse Resp BP Pulse Ox O2 Del Method O2 Flow Rate 09/13/23 09:48 Nasal Cannula 4 09/13/23 08:40 Nasal Cannula 6 09/13/23 07:46 97.6 F 99 20 112/81 95 09/13/23 06:00 105 H 09/13/23 04:00 94 09/13/23 04:00 95 High Flow Nasal Cannula 8 09/13/23 03:30 97.6 F 93 20 110/46 L 94 09/13/23 02:00 96 09/13/23 00:00 95 09/13/23 00:00 94 Autopap 5 09/12/23 23:25 97.5 F L 98 20 123/59 L 90 09/12/23 22:25 100 25 H 90 Autopap 09/12/23 22:00 100 09/12/23 21:45 93 Nasal Cannula 10 09/12/23 20:00 92 Venturi Mask 15 09/12/23 20:00 104 H 09/12/23 19:49 97.8 F 104 H 20 112/70 93 09/12/23 18:50 90 High F
[2023-09-13 13:09] LABS: RNP Antibodies <1.0 NEG AI (<1.0 NEG)
--- NOTE | 2023-09-13 18:16 | P.PNIM_ITS ---
Progress Note: A&P Assessment and Plan (1) Leukocytosis: Code(s): D72.829 - Elevated white blood cell count, unspecified Status: Acute (2) Erythrocytosis: Code(s): D75.1 - Secondary polycythemia Status: Acute (3) Serotonin syndrome: Code(s): G25.79 - Other drug induced movement disorders Status: Acute (4) Raynauds phenomenon: Code(s): I73.00 - Raynaud's syndrome without gangrene Status: Acute (5) Rhabdomyolysis: Code(s): M62.82 - Rhabdomyolysis Status: Acute (6) Acute lactic acidosis: Code(s): E87.21 - Acute metabolic acidosis Status: Acute (7) Acute hyponatremia: Code(s): E87.1 - Hypo-osmolality and hyponatremia Status: Acute (8) Peripheral neuropathy: Qualifiers: Peripheral neuropathy type: polyneuropathy, unspecified Qualified Code(s): G62.9 - Polyneuropathy, unspecified Code(s): G62.9 - Polyneuropathy, unspecified Status: Acute Plan This is a pleasant 72-year-old female with a history of anxiety, essential hypertension, GERD, peripheral artery disease, Raynaud's phenomenon in the toes and fingers, pernicious anemia, vitamin-D deficiency, KIKI positivity (currently establishing with rheumatology) who presents with severe muscle cramping all over the body. She was recently discharged from [facility] on 09/10/23 after having generalized weakness and muscle aches, shortness of breath, nausea but no vomiting, diarrhea. She had went to an urgent care and tested negative for influenza. She took 5 COVID home test and they were all negative. It was suspected she had a viral syndrome. Then came to the ER on the next day Wednesday and received fluids. She was then sent home. Ultimately, on presentation on 09/09/2022 she was admitted. Her symptoms resolved and her quad viral screen was negative. She was sent home appropriately as she was feeling better. She ate a roast beef sandwich for dinner just prior to discharge. She went home and she ate chicken noodle soup and overnight she quickly began having extreme muscle cramping and pain all over the body again. She was then brought in on the night of 09/10/2023. She has not restarted her Cymbalta. In the repeat ER presentation on the night of 09/09/2022 she received thiamine 500 mg x 1, unclear why as we are waiting charting to be completed at the moment. Otherwise, she received 2 L isotonic fluid bolus, Zofran 4 mg IV x1, lactated Ringer's started at 200 cc/hour, morphine 2 mg IV push x1 which the patient reported made her stomach and chest upset. Chest x-ray demonstrated mild atelectasis. A urinalysis was taken which was abnormal but appears very contaminated. Her white blood cell count 14.9 which is elevated since discharge, her hemoglobin 18.1 which is elevated from 16 from the last discharge, platelet count 162. No bandemia identified. INR 1.0. Sodium 128 x2, her bicarb 15 x 2, the studies were taken back to back basically. Her anion gap coming down to 14, lactic acid coming down from 8.7-7 0.3-5.6. Calcium 7.6, AST 114, ALT 54, her creatinine kinase 6413, her troponin 0.3062 then 0.258, albumin 2.5, procalcitonin 0.1. Upon interviewing the patient in room 206 bed 1 with her sister at bedside the patient is pleasant and A&O x4 and reports her muscle cramping has improved greatly after fluids and morphine. The patient denies any nausea and wants to eat already. Currently she is improving. There is good suspicion for serotonin syndrome. She is not taking Cymbalta since 5 days prior to admission although this drug has a long half-life in she a check-in and a roast beef sandwich on the night of di
[2023-09-14] VITALS (20 sets, daily range): BP systolic 100–121; BP diastolic 46–64; PULSE 89–106; RESP 11–20; TEMP 35.8–36.4; O2SAT 91–99
[2023-09-14] MEDS: methylPREDNISolone SOD SUCC 125 MG VIAL IV PUSH ×6 (00:58→21:43)
[2023-09-14] MEDS: LORazepam (*CRX) 0.5 MG TABLET PO (02:34)
[2023-09-14 07:40] LABS: Hematocrit 49.3 % (37.0-47.0); Hemoglobin 15.9 g/dL (12.0-15.0); Mean Corpuscular HGB Conc 32.3 g/dl (32-36); Mean Corpuscular Hemoglobin 30.1 pg (26-34); Mean Corpuscular Volume 93.2 fl (80-100); Mean Platelet Volume 12.3 fl (7.4-10.4); Platelet Count Result 184 k/mm3 (150-375); Red Blood Count 5.29 M/mm3 (4.2-5.4); Red Cell Distribution Width 15.3 % (11.5-14.5); White Blood Count 25.5 K/mm3 (4.5-10.0)
[2023-09-14 08:05] LABS: Lactic Acid Reflex 3.2 mmol/L (0.7-2.0)
[2023-09-14] MEDS: amLODIPine BESYLATE 10 MG TABLET PO (08:19)
[2023-09-14] MEDS: PANTOPRAZOLE 40 MG TABLET PO (08:19)
[2023-09-14] MEDS: HEPARIN SODIUM 5,000 UNITS/ML VIAL 5000 UNITS SUB-Q ×2 (08:20→21:43)
[2023-09-14] MEDS: SODIUM CHLORIDE 1 GM TABLET PO ×2 (08:20→16:44)
[2023-09-14] MEDS: HYDROcodone/acetaminophen (*CRX) 10-325 MG TABLET 1 TAB PO ×2 (08:22→21:42)
[2023-09-14 08:49] LABS: Alanine Aminotransferase 77 U/L (6-35); Albumin Level 2.6 g/dL (3.5-5.1); Alkaline Phosphatase 67 U/L (38-126); Anion Gap 11 mmol/L (4-12); Aspartate Amino Transferase 77 U/L (14-36); Blood Urea Nitrogen 40 mg/dL (7-17); Calcium 8.3 mg/dL (8.4-10.2); Carbon Dioxide 21 mmol/L (22-30); Chloride 95 mmol/L (98-107); Creatine Kinase 638 U/L (30-135); Estimated CRCL calculation 49 ml/min; Estimated Glomerular Filt Rate 49; Glucose 95 mg/dL (65-110); Potassium 4.4 mmol/L (3.4-5.0); Sodium 127 mmol/L (137-145); Troponin I 0.532 ng/mL (0.000-0.034)
--- NOTE | 2023-09-14 10:28 | P.PNNP_ITS ---
Progress Note: A&P Assessment and Plan (1) Hyponatremia: Code(s): E87.1 - Hypo-osmolality and hyponatremia Status: Acute Assessment and Plan: * slow improvement * acute * normal sodium levels on previous hospitalization several days ago * admission sodium 128mmol/L * noted progressive drop with most recent sodium down to 122mmol/L on 09/12/23 * urine studies suggest prerenal azotemia/volume depletion * however, with IVF resuscitation, sodium has not improved * suspect drop in sodium multifactorial: * prerenal factors * acute pain * pain medications * fluctuating CPK/rhabdomyolysis * PPI use * on fluid restriction * on salt tabs (and possibly lasix) * consider 3% saline if sodium drops below 120mmol/L * evalution to date: * TSH good * cortisol acceptable (although already on steroids) * SPE/UPE pending * follow trend of repeat sodiums (2) Lactic acidosis: Code(s): E87.20 - Acidosis, unspecified Status: Acute Assessment and Plan: * as noted on admission * appears to be downtrending with IVF resuscitation * etiology?? * continue supportive therapy (3) Rhabdomyolysis: Code(s): M62.82 - Rhabdomyolysis Status: Acute Assessment and Plan: * elevated CPKs noted * getting IVFs * follow trend of CPK (4) HTN (hypertension): Code(s): I10 - Essential (primary) hypertension Status: Acute Assessment and Plan: * fluctuating but suspect pain playing a role * follow trend of hemodynamics (5) Erythrocytosis: Code(s): D75.1 - Secondary polycythemia Status: Acute Assessment and Plan: * high H/H noted on admission * possibly partly related to volume depletion * follow trend of H/H Will continue to follow. Subjective Date/time seen: 09/14/23 10:28 Interval history: Follow-up for acute hyponatremia. Sodium continues to slowly improve with interventions instituted; increasing oxygen requirements and requiring BiPAP therapy; no apparent distress at the time of my visit. Exam Narrative: General: elderly female in mild distress Heart: normal S1 and S2; no rub Lungs: clear to auscultation Abdomen: soft, nontender, nondistended, positive bowel sounds Extremities: no cyanosis or clubbing; no edema Skin: fluctuating skin changes apparent Objective Data Vital Signs Vital Signs: Vital Signs Temp Pulse Resp BP Pulse Ox O2 Del Method O2 Flow Rate 09/14/23 08:27 97.5 F L 104 H 20 118/51 L 93 09/14/23 08:00 94 High Flow Nasal Cannula 2 09/14/23 06:00 94 09/14/23 04:36 97.6 F 95 20 100/46 L 94 09/14/23 04:00 94 09/14/23 04:00 94 Nasal Cannula 4 09/14/23 02:00 98 09/14/23 02:26 96 11 L 93 Autopap 09/14/23 00:00 92 Autopap 4 09/14/23 00:00 98 09/14/23 00:00 97.6 F 100 20 106/49 L 91 09/13/23 21:03 100 16 91 Autopap 09/13/23 22:00 96 09/13/23 20:10 92 Nasal Cannula 4 09/13/23 20:00 101 H 09/13/23 20:19 90 Nasal Cannula 3 09/13/23 20:05 97.6 F 103 H 20 114/50 L 92 09/13/23 18:00 93 09/13/23 16:00 96 09/13/23 16:00 94 Nasal Cannula 4
--- NOTE | 2023-09-14 10:28 | PM.PNNEP ---
Progress Note: A&P Assessment and Plan (1) Hyponatremia: Code(s): E87.1 - Hypo-osmolality and hyponatremia Status: Acute Assessment and Plan: slow improvement acute normal sodium levels on previous hospitalization several days ago admission sodium 128mmol/L noted progressive drop with most recent sodium down to 122mmol/L on 09/12/23 urine studies suggest prerenal azotemia/volume depletion however, with IVF resuscitation, sodium has not improved suspect drop in sodium multifactorial: prerenal factors acute pain pain medications fluctuating CPK/rhabdomyolysis PPI use on fluid restriction on salt tabs (and possibly lasix) consider 3% saline if sodium drops below 120mmol/L evalution to date: TSH good cortisol acceptable (although already on steroids) SPE/UPE pending follow trend of repeat sodiums (2) Lactic acidosis: Code(s): E87.20 - Acidosis, unspecified Status: Acute Assessment and Plan: as noted on admission appears to be downtrending with IVF resuscitation etiology?? continue supportive therapy (3) Rhabdomyolysis: Code(s): M62.82 - Rhabdomyolysis Status: Acute Assessment and Plan: elevated CPKs noted getting IVFs follow trend of CPK (4) HTN (hypertension): Code(s): I10 - Essential (primary) hypertension Status: Acute Assessment and Plan: fluctuating but suspect pain playing a role follow trend of hemodynamics (5) Erythrocytosis: Code(s): D75.1 - Secondary polycythemia Status: Acute Assessment and Plan: high H/H noted on admission possibly partly related to volume depletion follow trend of H/H Will continue to follow. Subjective Date/time seen: 09/14/23 10:28 Interval history: Follow-up for acute hyponatremia. Sodium continues to slowly improve with interventions instituted; increasing oxygen requirements and requiring BiPAP therapy; no apparent distress at the time of my visit. Exam Narrative: General: elderly female in mild distress Heart: normal S1 and S2; no rub Lungs: clear to auscultation Abdomen: soft, nontender, nondistended, positive bowel sounds Extremities: no cyanosis or clubbing; no edema Skin: fluctuating skin changes apparent Objective Data Vital Signs Vital Signs: Vital Signs Temp Pulse Resp BP Pulse Ox O2 Del Method O2 Flow Rate 09/14/23 08:27 97.5 F L 104 H 20 118/51 L 93 09/14/23 08:00 94 High Flow Nasal Cannula 2 09/14/23 06:00 94 09/14/23 04:36 97.6 F 95 20 100/46 L 94 09/14/23 04:00 94 09/14/23 04:00 94 Nasal Cannula 4 09/14/23 02:00 98 09/14/23 02:26 96 11 L 93 Autopap 09/14/23 00:00 92 Autopap 4 09/14/23 00:00 98 09/14/23 00:00 97.6 F 100 20 106/49 L 91 09/13/23 21:03 100 16 91 Autopap 09/13/23 22:00 96 09/13/23 20:10 92 Nasal Cannula 4 09/13/23 20:00 101 H 09/13/23 20:19 90 Nasal Cannula 3 09/13/23 20:05 97.6 F 103 H 20 114/50 L 92 09/13/23 18:00 93 09/13/23 16:00 96 09/13/23 16:00 94 Nasal Cannula 4 09/13/23 15:39 97.0 F L 95 20 116/55 L 94 09/13/23 14:00 96 Intake/Output Intake/Output: Intake & Output 09/11/23 09/12/23 09/13/23 09/14/23 23:59 23:59 23:59 23:59 Intake Total 4300 2787.5 320 360 Output Total 1650 500 300 Balance 4300 1137.5 -180 60 Meds/Results Medications: Active Medications Generic Name Dose Route Start Last Admin Trade Name Freq PRN Reason Stop Dose Admin Acetaminophen 650 mg 09/11/23 11:36 09/12/23 11:58 Acetaminophen 325 Mg Tablet PO 650 mg Q4H PRN Administration Headache Hydrocodone Bitart/Acetaminophen 1 tab 09/11/23 15:18 09/14/23 08:22 Hydrocodone/Acetaminophen (*Crx) 10-325 Mg Tablet PO 1 tab Q6H PRN Administration Pain Rated 4-6 Amlodipine Be
[2023-09-14 10:29] LABS: Reflex Lactic Acid Yes or No Add Lactic
--- NOTE | 2023-09-14 10:51 | PM.IMPN ---
Progress Note: A&P Assessment and Plan (1) Leukocytosis: Code(s): D72.829 - Elevated white blood cell count, unspecified Status: Acute (2) Erythrocytosis: Code(s): D75.1 - Secondary polycythemia Status: Acute (3) Serotonin syndrome: Code(s): G25.79 - Other drug induced movement disorders Status: Acute (4) Raynauds phenomenon: Code(s): I73.00 - Raynaud's syndrome without gangrene Status: Acute (5) Rhabdomyolysis: Code(s): M62.82 - Rhabdomyolysis Status: Acute (6) Acute lactic acidosis: Code(s): E87.21 - Acute metabolic acidosis Status: Acute (7) Acute hyponatremia: Code(s): E87.1 - Hypo-osmolality and hyponatremia Status: Acute (8) Peripheral neuropathy: Qualifiers: Peripheral neuropathy type: polyneuropathy, unspecified Qualified Code(s): G62.9 - Polyneuropathy, unspecified Code(s): G62.9 - Polyneuropathy, unspecified Status: Acute Plan This is a pleasant 72-year-old female with a history of anxiety, essential hypertension, GERD, peripheral artery disease, Raynaud's phenomenon in the toes and fingers, pernicious anemia, vitamin-D deficiency, KIKI positivity (currently establishing with rheumatology) who presents with severe muscle cramping all over the body. She was recently discharged from [facility] on 09/10/23 after having generalized weakness and muscle aches, shortness of breath, nausea but no vomiting, diarrhea. She had went to an urgent care and tested negative for influenza. She took 5 COVID home test and they were all negative. It was suspected she had a viral syndrome. Then came to the ER on the next day Wednesday and received fluids. She was then sent home. Ultimately, on presentation on 09/09/2022 she was admitted. Her symptoms resolved and her quad viral screen was negative. She was sent home appropriately as she was feeling better. She ate a roast beef sandwich for dinner just prior to discharge. She went home and she ate chicken noodle soup and overnight she quickly began having extreme muscle cramping and pain all over the body again. She was then brought in on the night of 09/10/2023. She has not restarted her Cymbalta. In the repeat ER presentation on the night of 09/09/2022 she received thiamine 500 mg x 1, unclear why as we are waiting charting to be completed at the moment. Otherwise, she received 2 L isotonic fluid bolus, Zofran 4 mg IV x1, lactated Ringer's started at 200 cc/hour, morphine 2 mg IV push x1 which the patient reported made her stomach and chest upset. Chest x-ray demonstrated mild atelectasis. A urinalysis was taken which was abnormal but appears very contaminated. Her white blood cell count 14.9 which is elevated since discharge, her hemoglobin 18.1 which is elevated from 16 from the last discharge, platelet count 162. No bandemia identified. INR 1.0. Sodium 128 x2, her bicarb 15 x 2, the studies were taken back to back basically. Her anion gap coming down to 14, lactic acid coming down from 8.7-7 0.3-5.6. Calcium 7.6, AST 114, ALT 54, her creatinine kinase 6413, her troponin 0.3062 then 0.258, albumin 2.5, procalcitonin 0.1. Upon interviewing the patient in room 206 bed 1 with her sister at bedside the patient is pleasant and A&O x4 and reports her muscle cramping has improved greatly after fluids and morphine. The patient denies any nausea and wants to eat already. Currently she is improving. There is good suspicion for serotonin syndrome. She is not taking Cymbalta since 5 days prior to admission although this drug has a long half-life in she a check-in and a roast beef sandwich on the night of discharge on 09/10/2023. She has lactic acidosis and rhabdomyolysis. Continue to trend these and continue fluid resuscitation. We will give Ativan p.o. q.6 hours p.r.n. to help calm her. She did not like morphine. Will avoid tramadol due to its inhibitory serotonergic effects. T
[2023-09-14 11:00] LABS: Lactic Acid 3.3 mmol/L (0.7-2.0)
[2023-09-14 11:48] LABS: Kappa\\Lambda Light Chains 0.94 (0.26-1.65); Lambda Light Chain 20.4 mg/L (5.7-26.3)
[2023-09-14] MEDS: ACETAMINOPHEN 325 MG TABLET 650 MG PO (13:16)
[2023-09-14 13:28] LABS: Protein, Total 4.2 g/dL (6.1-8.1)
[2023-09-14 14:39] LABS: Creatinine, Random Urine 72 mg/dL (20-275); Total Protein/Creatinine Ratio 431 mg/g creat (24-184)
[2023-09-14] MEDS: ONDANSETRON INJ 4 MG/2 ML VIAL IV PUSH (17:04)
[2023-09-15] VITALS (20 sets, daily range): BP systolic 102–131; BP diastolic 45–90; PULSE 82–102; RESP 15–22; TEMP 36.3–36.8; O2SAT 92–100
[2023-09-15] MEDS: methylPREDNISolone SOD SUCC 125 MG VIAL IV PUSH ×6 (01:45→21:38)
[2023-09-15] MEDS: LORazepam (*CRX) 0.5 MG TABLET PO (02:56)
[2023-09-15 04:32] LABS: Hematocrit 47.4 % (37.0-47.0); Hemoglobin 15.4 g/dL (12.0-15.0); Mean Corpuscular HGB Conc 32.5 g/dl (32-36); Mean Corpuscular Hemoglobin 29.8 pg (26-34); Mean Corpuscular Volume 91.9 fl (80-100); Platelet Count Result 189 k/mm3 (150-375); Red Blood Count 5.16 M/mm3 (4.2-5.4); Red Cell Distribution Width 15.2 % (11.5-14.5); White Blood Count 17.7 K/mm3 (4.5-10.0)
[2023-09-15 04:44] LABS: Alanine Aminotransferase 88 U/L (6-35); Alkaline Phosphatase 73 U/L (38-126); Anion Gap 9 mmol/L (4-12); Aspartate Amino Transferase 60 U/L (14-36); Bilirubin,Total 1.1 mg/dL (0.2-1.3); Blood Urea Nitrogen 47 mg/dL (7-17); Calcium 8.1 mg/dL (8.4-10.2); Carbon Dioxide 21 mmol/L (22-30); Chloride 94 mmol/L (98-107); Estimated CRCL calculation 45 ml/min; Estimated Glomerular Filt Rate 44; Glucose 124 mg/dL (65-110); Potassium 4.6 mmol/L (3.4-5.0); Sodium 124 mmol/L (137-145)
[2023-09-15] MEDS: SODIUM CHLORIDE 1 GM TABLET PO ×2 (08:55→17:19)
[2023-09-15] MEDS: HEPARIN SODIUM 5,000 UNITS/ML VIAL 5000 UNITS SUB-Q ×2 (08:55→21:38)
[2023-09-15] MEDS: amLODIPine BESYLATE 10 MG TABLET PO (08:55)
[2023-09-15] MEDS: PANTOPRAZOLE 40 MG TABLET PO (08:55)
[2023-09-15 10:41] LABS: Creatine Kinase 368 U/L (30-135)
[2023-09-15 10:59] LABS: Troponin I 0.368 ng/mL (0.000-0.034)
[2023-09-15 11:00] LABS: Lactic Acid Reflex 1.8 mmol/L (0.7-2.0)
[2023-09-15 11:04] LABS: D Dimer 1.49 ug/mL (<0.48)
--- NOTE | 2023-09-15 12:35 | PM.PNNEP ---
Progress Note: A&P Assessment and Plan (1) Hyponatremia: Code(s): E87.1 - Hypo-osmolality and hyponatremia Status: Acute Assessment and Plan: fluctuating at this time acute normal sodium levels on previous hospitalization several days ago admission sodium 128mmol/L noted progressive drop with most recent sodium down to 122mmol/L on 09/12/23 urine studies suggest prerenal azotemia/volume depletion however, with IVF resuscitation, sodium has not improved suspect drop in sodium multifactorial: prerenal factors acute pain pain medications fluctuating CPK/rhabdomyolysis PPI use on fluid restriction on salt tabs (and possibly lasix) consider 3% saline if sodium drops below 120mmol/L evalution to date: TSH good cortisol acceptable (although already on steroids) SPE/UPE pending follow trend of repeat sodiums (2) Lactic acidosis: Code(s): E87.20 - Acidosis, unspecified Status: Acute Assessment and Plan: as noted on admission appears to be downtrending with IVF resuscitation etiology?? continue supportive therapy (3) Rhabdomyolysis: Code(s): M62.82 - Rhabdomyolysis Status: Acute Assessment and Plan: elevated CPKs noted getting IVFs follow trend of CPK (4) HTN (hypertension): Code(s): I10 - Essential (primary) hypertension Status: Acute Assessment and Plan: fluctuating but suspect pain playing a role follow trend of hemodynamics (5) Erythrocytosis: Code(s): D75.1 - Secondary polycythemia Status: Acute Assessment and Plan: high H/H noted on admission possibly partly related to volume depletion follow trend of H/H Will continue to follow. Subjective Date/time seen: 09/15/23 12:35 Interval history: Follow-up for acute hyponatremia. Sodiium fluctuating as noted by AM labs; no apparent distress voiced at thie time of my visit; still awaiting transfer to [facility] or [place] for further rheumatological work-up. Exam Narrative: General: elderly female in mild distress Heart: normal S1 and S2; no rub Lungs: clear to auscultation Abdomen: soft, nontender, nondistended, positive bowel sounds Extremities: no cyanosis or clubbing; no edema Skin: fluctuating skin changes apparent Objective Data Vital Signs Vital Signs: Vital Signs Temp Pulse Resp BP Pulse Ox O2 Del Method O2 Flow Rate 09/15/23 12:00 92 High Flow Nasal Cannula 2 09/15/23 11:32 97.7 F 102 H 22 H 107/45 L 94 09/15/23 08:00 92 High Flow Nasal Cannula 2 09/15/23 08:58 92 Nasal Cannula 2 09/15/23 06:00 82 09/15/23 07:33 97.6 F 93 20 131/56 L 93 09/15/23 04:00 96 09/15/23 02:00 87 09/15/23 00:00 86 09/14/23 22:00 94 09/14/23 20:00 93 09/15/23 04:00 94 20 96 CPAP 09/15/23 03:35 97.5 F L 94 20 120/60 96 09/15/23 02:53 87 15 95 CPAP 09/15/23 00:00 95 18 96 CPAP 09/15/23 00:00 97.5 F L 95 18 102/50 L 96 09/14/23 22:47 89 15 94 CPAP 09/14/23 20:15 97.1 F L 93 20 121/64 95 09/14/23 20:00 99 High Flow Nasal Cannula 2 09/14/23 18:00 91 09/14/23 16:00 91 09/14/23 16:00 99 High Flow Nasal Cannula 2 Intake/Output Intake/Output: Intake & Output 09/12/23 09/13/23 09/14/23 09/15/23 23:59 23:59 23:59 23:59 Intake Total 2787.5 320 720 290 Output Total 1650 500 500 300 Balance 1137.5 -180 220 -10 Meds/Results Medications: Active Medications Generic Name Dose Route Start Last Admin Trade Name Freq PRN Reason Stop Dose Admin Acetaminophen 650 mg 09/11/23 11:36 09/14/23 13:16 Acetaminophen 325 Mg Tablet PO 650 mg Q4H PRN Administration Headache Hydrocodone Bitart/Acetaminophen 1 tab 09/11/23 15:18 09/14/23 21:42 Hydrocodone/Acetaminophen (*Crx) 10-325 Mg Tablet PO 1 tab Q6H PRN Administratio
--- NOTE | 2023-09-15 12:35 | P.PNNP_ITS ---
Progress Note: A&P Assessment and Plan (1) Hyponatremia: Code(s): E87.1 - Hypo-osmolality and hyponatremia Status: Acute Assessment and Plan: * fluctuating at this time * acute * normal sodium levels on previous hospitalization several days ago * admission sodium 128mmol/L * noted progressive drop with most recent sodium down to 122mmol/L on 09/12/23 * urine studies suggest prerenal azotemia/volume depletion * however, with IVF resuscitation, sodium has not improved * suspect drop in sodium multifactorial: * prerenal factors * acute pain * pain medications * fluctuating CPK/rhabdomyolysis * PPI use * on fluid restriction * on salt tabs (and possibly lasix) * consider 3% saline if sodium drops below 120mmol/L * evalution to date: * TSH good * cortisol acceptable (although already on steroids) * SPE/UPE pending * follow trend of repeat sodiums (2) Lactic acidosis: Code(s): E87.20 - Acidosis, unspecified Status: Acute Assessment and Plan: * as noted on admission * appears to be downtrending with IVF resuscitation * etiology?? * continue supportive therapy (3) Rhabdomyolysis: Code(s): M62.82 - Rhabdomyolysis Status: Acute Assessment and Plan: * elevated CPKs noted * getting IVFs * follow trend of CPK (4) HTN (hypertension): Code(s): I10 - Essential (primary) hypertension Status: Acute Assessment and Plan: * fluctuating but suspect pain playing a role * follow trend of hemodynamics (5) Erythrocytosis: Code(s): D75.1 - Secondary polycythemia Status: Acute Assessment and Plan: * high H/H noted on admission * possibly partly related to volume depletion * follow trend of H/H Will continue to follow. Subjective Date/time seen: 09/15/23 12:35 Interval history: Follow-up for acute hyponatremia. Sodiium fluctuating as noted by AM labs; no apparent distress voiced at thie time of my visit; still awaiting transfer to [facility] or [place] for further rheumatological work-up. Exam Narrative: General: elderly female in mild distress Heart: normal S1 and S2; no rub Lungs: clear to auscultation Abdomen: soft, nontender, nondistended, positive bowel sounds Extremities: no cyanosis or clubbing; no edema Skin: fluctuating skin changes apparent Objective Data Vital Signs Vital Signs: Vital Signs Temp Pulse Resp BP Pulse Ox O2 Del Method O2 Flow Rate 09/15/23 12:00 92 High Flow Nasal Cannula 2 09/15/23 11:32 97.7 F 102 H 22 H 107/45 L 94 09/15/23 08:00 92 High Flow Nasal Cannula 2 09/15/23 08:58 92 Nasal Cannula 2 09/15/23 06:00 82 09/15/23 07:33 97.6 F 93 20 131/56 L 93 09/15/23 04:00 96 09/15/23 02:00 87 09/15/23 00:00 86 09/14/23 22:00 94 09/14/23 20:00 93 09/15/23 04:00 94 20 96 CPAP 09/15/23 03:35 97.5 F L 94 20 120/60 96 09/15/23 02:53 87 15 95 CPAP 09/15/23 00:00 95 18 96 CPAP 09/15/23 00:00 97.5 F L 95 18 102/50 L 96 09/14/23 22:47 89 15 94 CPAP 09/14/23 20:15 97.1 F L 93 20 121/64 95 09/14/23 20:00 99 High Flow Nasal Cannula 2 08
[2023-09-15 12:58] LABS: Albumin 2.2 g/dL (3.8-4.8); Alpha 1 Globulin 0.3 g/dL (0.2-0.3); Alpha 2 Globulin 0.7 g/dL (0.5-0.9); Beta 1 Globulin 0.3 g/dL (0.4-0.6); Gamma Globulin 0.5 g/dL (0.8-1.7)
[2023-09-15 16:28] LABS: Osmolality, Urine 957 mOsm/kg (50-1200)
[2023-09-15] MEDS: HYDROcodone/acetaminophen (*CRX) 10-325 MG TABLET 1 TAB PO (17:19)
[2023-09-16] VITALS (10 sets, daily range): BP systolic 123–126; BP diastolic 62–64; PULSE 94–104; RESP 12–20; TEMP 36.2–36.7; O2SAT 97–100
[2023-09-16] MEDS: methylPREDNISolone SOD SUCC 125 MG VIAL IV PUSH ×3 (00:37→08:31)
[2023-09-16 07:21] LABS: Basophils Absolute Auto 0.1 K/mm3 (0.0-0.1); Basophils Percent Auto 0.4 % (0.2-1.2); Hematocrit 43.8 % (37.0-47.0); Hemoglobin 14.7 g/dL (12.0-15.0); Immature Granulocyte Absolute 0.82 K/mm3 (0.00-0.031); Immature Granulocyte Percent A 6.1 % (0-0.5); Lymphocytes Absolute Auto 0.45 K/mm3 (0.9-3.2); Lymphocytes Percent Auto 3.4 % (18.3-44.2); Mean Corpuscular HGB Conc 33.6 g/dl (32-36); Mean Corpuscular Hemoglobin 30.6 pg (26-34); Mean Corpuscular Volume 91.1 fl (80-100); Monocytes Percent Auto 7.5 % (2.6-8.5); Neutrophils Absolute Auto 11.1 K/mm3 (1.3-6.7); Neutrophils Percent Auto 82.6 % (45.5-73.1); Platelet Count Result 183 k/mm3 (150-375); Red Blood Count 4.81 M/mm3 (4.2-5.4); Red Cell Distribution Width 15.1 % (11.5-14.5); White Blood Count 13.4 K/mm3 (4.5-10.0)
[2023-09-16 07:29] LABS: Lactic Acid Reflex 1.5 mmol/L (0.7-2.0)
[2023-09-16 07:31] LABS: Alanine Aminotransferase 76 U/L (6-35); Albumin Level 2.9 g/dL (3.5-5.1); Alkaline Phosphatase 71 U/L (38-126); Anion Gap 6 mmol/L (4-12); Aspartate Amino Transferase 44 U/L (14-36); Bilirubin,Total 1.4 mg/dL (0.2-1.3); Blood Urea Nitrogen 36 mg/dL (7-17); Calcium 8.1 mg/dL (8.4-10.2); Carbon Dioxide 25 mmol/L (22-30); Chloride 97 mmol/L (98-107); Creatine Kinase 117 U/L (30-135); Estimated CRCL calculation 73 ml/min; Estimated Glomerular Filt Rate > 60; Glucose 138 mg/dL (65-110); Potassium 4.5 mmol/L (3.4-5.0); Sodium 128 mmol/L (137-145)
[2023-09-16] MEDS: HYDROcodone/acetaminophen (*CRX) 10-325 MG TABLET 1 TAB PO (08:31)
[2023-09-16] MEDS: PANTOPRAZOLE 40 MG TABLET PO (08:31)
[2023-09-16] MEDS: amLODIPine BESYLATE 10 MG TABLET PO (08:31)
[2023-09-16] MEDS: HEPARIN SODIUM 5,000 UNITS/ML VIAL 5000 UNITS SUB-Q (08:31)
[2023-09-16] MEDS: SODIUM CHLORIDE 1 GM TABLET PO (08:31)
--- NOTE | 2023-09-16 11:56 | PC.NURSE ---
Pt transferred to U room 523 via [facility]. , Thong, at bedside for transfer. Thong took pt's belonging and is aware of transfer. Caren RN @ [facility] called and notify that pt is leaving this facility.
[2023-09-16 12:44] LABS: Adenovirus DNA Not Detected (Not Detected); Chlamydophila pneumoniae Not Detected (Not Detected); Coronavirus 229E Not Detected (Not Detected); Coronavirus HKU1 Not Detected (Not Detected); Coronavirus NL63 Not Detected (Not Detected); Coronavirus OC43 Not Detected (Not Detected); Human Metapneumovirus Not Detected (Not Detected); Human Parainfluenza Virus 1 Not Detected (Not Detected); Human Parainfluenza Virus 2 Not Detected (Not Detected); Human Parainfluenza Virus 3 Not Detected (Not Detected); Human Parainfluenza Virus 4 Not Detected (Not Detected); Human RSV B Not Detected (Not Detected); Influenza A Not Detected (Not Detected); Influenza B Not Detected (Not Detected); Mycoplasma pneumoniae Not Detected (Not Detected); Rhinovirus/Enterovirus Not Detected (Not Detected)
--- NOTE | 2023-09-16 14:04 | PM.DS ---
DS: Admitting Diagnosis Discharge Date 09/16/23 Admitting Diagnosis Rhabdomyolysis, Acute lactic acidosis DS: Discharge Diagnosis Discharge Diagnosis (1) Leukocytosis: Code(s): D72.829 - Elevated white blood cell count, unspecified Status: Acute (2) Erythrocytosis: Code(s): D75.1 - Secondary polycythemia Status: Acute (3) Serotonin syndrome: Code(s): G25.79 - Other drug induced movement disorders Status: Acute (4) Raynauds phenomenon: Code(s): I73.00 - Raynaud's syndrome without gangrene Status: Acute (5) Rhabdomyolysis: Code(s): M62.82 - Rhabdomyolysis Status: Acute (6) Acute lactic acidosis: Code(s): E87.21 - Acute metabolic acidosis Status: Acute (7) Acute hyponatremia: Code(s): E87.1 - Hypo-osmolality and hyponatremia Status: Acute (8) Peripheral neuropathy: Qualifiers: Peripheral neuropathy type: polyneuropathy, unspecified Qualified Code(s): G62.9 - Polyneuropathy, unspecified Code(s): G62.9 - Polyneuropathy, unspecified Status: Acute DS: Summary Hospital Course Hospital Course: This is a pleasant 72-year-old female with a history of anxiety, essential hypertension, GERD, peripheral artery disease, Raynaud's phenomenon in the toes and fingers, pernicious anemia, vitamin-D deficiency, KIKI positivity (currently establishing with rheumatology) who presents with severe muscle cramping all over the body. She was recently discharged from [facility] on 09/10/23 after having generalized weakness and muscle aches, shortness of breath, nausea but no vomiting, diarrhea. She had went to an urgent care and tested negative for influenza. She took 5 COVID home test and they were all negative. It was suspected she had a viral syndrome. Then came to the ER on the next day Wednesday and received fluids. She was then sent home. Ultimately, on presentation on 09/09/2022 she was admitted. Her symptoms resolved and her quad viral screen was negative. She was sent home appropriately as she was feeling better. She ate a roast beef sandwich for dinner just prior to discharge. She went home and she ate chicken noodle soup and overnight she quickly began having extreme muscle cramping and pain all over the body again. She was then brought in on the night of 09/10/2023. She has not restarted her Cymbalta. In the repeat ER presentation on the night of 09/09/2022 she received thiamine 500 mg x 1, unclear why as we are waiting charting to be completed at the moment. Otherwise, she received 2 L isotonic fluid bolus, Zofran 4 mg IV x1, lactated Ringer's started at 200 cc/hour, morphine 2 mg IV push x1 which the patient reported made her stomach and chest upset. Chest x-ray demonstrated mild atelectasis. A urinalysis was taken which was abnormal but appears very contaminated. Her white blood cell count 14.9 which is elevated since discharge, her hemoglobin 18.1 which is elevated from 16 from the last discharge, platelet count 162. No bandemia identified. INR 1.0. Sodium 128 x2, her bicarb 15 x 2, the studies were taken back to back basically. Her anion gap coming down to 14, lactic acid coming down from 8.7-7 0.3-5.6. Calcium 7.6, AST 114, ALT 54, her creatinine kinase 6413, her troponin 0.3062 then 0.258, albumin 2.5, procalcitonin 0.1. Upon interviewing the patient in room 206 bed 1 with her sister at bedside the patient is pleasant and A&O x4 and reports her muscle cramping has improved greatly after fluids and morphine. The patient denies any nausea and wants to eat already. Currently she is improving. There is good suspicion for serotonin syndrome. She is not taking Cymbalta since 5 days prior to admission although this drug has a long half-life in she a check-in and a roast beef sandwich on the night of discharge on 09/10/2023. She has lactic acidosis and rhabdomyolysis. Continue to trend these and continue fluid resuscitat
--- NOTE | 2023-09-16 18:06 | PM.TDS ---
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 Has provider been notified: Yes Attending physician on discharge: Gerald Robert Discharging clinician: Gerald Robert Anticipated date of transfer: 09/16/23 DS: Admitting Diagnosis Discharge Date 09/16/23 Admitting Diagnosis Rhabdomyolysis and elevated lactic acidosis. DS: Discharge Diagnosis Discharge Diagnosis (1) Leukocytosis: Code(s): D72.829 - Elevated white blood cell count, unspecified Status: Acute (2) Erythrocytosis: Code(s): D75.1 - Secondary polycythemia Status: Acute (3) Serotonin syndrome: Code(s): G25.79 - Other drug induced movement disorders Status: Acute (4) Raynauds phenomenon: Code(s): I73.00 - Raynaud's syndrome without gangrene Status: Acute (5) Rhabdomyolysis: Code(s): M62.82 - Rhabdomyolysis Status: Acute (6) Acute lactic acidosis: Code(s): E87.21 - Acute metabolic acidosis Status: Acute (7) Acute hyponatremia: Code(s): E87.1 - Hypo-osmolality and hyponatremia Status: Acute (8) Peripheral neuropathy: Qualifiers: Peripheral neuropathy type: polyneuropathy, unspecified Qualified Code(s): G62.9 - Polyneuropathy, unspecified Code(s): G62.9 - Polyneuropathy, unspecified Status: Acute Transfer Discharge Sum: Med Medications Active and Home Medications: Home Medications cholecalciferol (vitamin D3) 10 mcg (400 unit) capsule 10 mcg PO DAILY 01/18/23 [History Confirmed 09/11/23] calcium carbonate ([place]) 168 mg PO DAILY 08/16/23 [History Confirmed 09/11/23] losartan 50 mg tablet 50 mg PO DAILY #90 tabs 08/16/23 [Rx Confirmed 09/11/23] mecobalamin (vitamin B12) 500 mcg chewable tablet 500 mcg PO DAILY 08/16/23 [History Confirmed 09/11/23] acetaminophen 500 mg capsule 1,000 mg PO Q6H PRN pain #20 caps 09/08/23 [Rx Confirmed 09/11/23] ibuprofen 600 mg tablet 600 mg PO QID PRN Pain 09/11/23 [History Confirmed 09/11/23] ondansetron 8 mg disintegrating tablet 4 mg PO Q6H PRN nausea and vomiting 09/11/23 [History Confirmed 09/11/23] omeprazole 20 mg capsule,delayed release 20 mg PO DAILY #90 caps 09/13/23 [Rx] Transfer Discharge Sum: Hosp Hospital Course Hospital course: This is a pleasant 72-year-old female with a history of anxiety, essential hypertension, GERD, peripheral artery disease, Raynaud's phenomenon in the toes and fingers, pernicious anemia, vitamin-D deficiency, KIKI positivity (currently establishing with rheumatology) who presents with severe muscle cramping all over the body. She was recently discharged from [facility] on 09/10/23 after having generalized weakness and muscle aches, shortness of breath, nausea but no vomiting, diarrhea. She had went to an urgent care and tested negative for influenza. She took 5 COVID home test and they were all negative. It was suspected she had a viral syndrome. Then came to the ER on the next day Wednesday and received fluids. She was then sent home. Ultimately, on presentation on 09/09/2022 she was admitted. Her symptoms resolved and her quad viral screen was negative. She was sent home appropriately as she was feeling better. She ate a roast beef sandwich for dinner just prior to discharge. She went home and she ate chicken noodle soup and overnight she quickly began having extreme muscle cramping and pain all over the body again. She was then brought in on the night of 09/10/2023. She has not restarted her Cymbalta. In the repeat ER presentation on the night of 09/09/2022 she received thiamine 500 mg x 1, unclear why as we are waiting charting
[2023-09-20 09:49] LABS: Myoglobin, Urine <1
== END 2023-09-16 11:59 | disposition short-term general hospital (02) | DRG 558 ==
LOC: ANHED 06:29 → ANHIMU 09:02
PROVIDERS: General Practice; Internal Medicine Nephrology; Admitting Provider Internal Medicine; Emergency Provider Emergency Medicine; PCP Nurse Practitioner Family; Visit Provider General Practice
DX: M62.82 Rhabdomyolysis (principal); E87.21 Acute metabolic acidosis; E87.1 Hypo-osmolality and hyponatremia; I31.39 Other pericardial effusion (noninflammatory); J90 Pleural effusion, not elsewhere classified; J98.11 Atelectasis; D72.829 Elevated white blood cell count, unspecified; D75.1 Secondary polycythemia; R76.8 Other specified abnormal immunological findings in serum; G25.79 Other drug induced movement disorders; I73.00 Raynaud's syndrome without gangrene; G62.9 Polyneuropathy, unspecified; I73.9 Peripheral vascular disease, unspecified; K21.9 Gastro-esophageal reflux disease without esophagitis; I10 Essential (primary) hypertension; D64.9 Anemia, unspecified; E55.9 Vitamin D deficiency, unspecified; Z20.822 Contact with and (suspected) exposure to COVID-19; R93.2 Abnormal findings on diagnostic imaging of liver and biliary tract; F41.9 Anxiety disorder, unspecified; E86.0 Dehydration; I87.2 Venous insufficiency (chronic) (peripheral); E66.9 Obesity, unspecified; Z68.37 Body mass index [BMI] 37.0-37.9, adult
CPT/HCPCS: 36415; 71045; 71046; 74177; 74183; 75635; 80048; 80053; 80307; 81001; 82533; 82550; 82570; 82948; 83605; 83690; 83735; 83874; 83880; 83883; 83930; 83935; 84100; 84145; 84155; 84156; 84165; 84166; 84300; 84439; 84443; 84480; 84484; 85025; 85027; 85380; 85610; 85730; 86140; 86235; 86430; 87040; 87086; 87088; 87633; 87637; 93005; 93306; 93970; 94002; 94003; 94640; 96361; 96372; 96374; 96375; 96376; 97110; 97162; 97166; 97530; 97535; 99284; 99285; A9270; A9577; G0378; J1644; J1650; J1885; J1940; J2060; J2270; J2405; J2919; J3360; J3411; J3475; J7030; J7120; J7512; Q9967